=== PATIENT | male | born 1965 | race Two or more races ===

== ENCOUNTER 2024-08-07 09:19 | Observation (INO) | payer MEDICAID, SELFPAY ==
[2024-08-07 09:41] VITALS: BP 149/88; PULSE 100; RESP 20; TEMP 37.1; O2SAT 98; BMI 31.2
--- NOTE | 2024-08-07 09:58 | XR_ITS ---
Examination: PA lateral chest 2 views TECHNIQUE: Upright PA lateral chest 2 views Exam date and time: August 07, 2024 1006 hours Comparison July 05, 2012 INDICATIONS: Coughing today. FINDINGS: Normal heart size Bilateral granulomas again noted Poorly defined 5 cm mass which may be cavitary in the right upper lobe Osseous structures intact IMPRESSION: Recommend CT chest follow-up to exclude pulmonary neoplasm right apex
--- NOTE | 2024-08-07 10:36 | XR_ITS ---
Examination: CT chest with intravenous contrast CT abdomen with intravenous contrast CT pelvis with intravenous contrast 2-D coronal and sagittal reconstructions Time of exam: August 07, 2024 1249 hours INDICATIONS: Spider bite see the upper chest, congestion shortness of breath chest abdominal pain today CTDI: vol (mGy) : 12.6 DLP: (mGycm): 958 Technique: Multiple axial images of the chest, abdomen and pelvis with intravenous contrast, 3.0 mm slice thickness. Images obtained post intravenous injection Isovue 370 60 cc. 2-D sagittal and coronal reconstructions. Low dose protocols were performed. One or more of the following dose reduction techniques were used; automated exposure control, adjustment of the mA and/or KV according to patient size, use of iterative reconstruction technique. Findings: Cellulitis pattern in the anterior upper chest axial image 38, no definite fluid-filled abscess Also cellulitis pattern in the right axilla with multiple subcentimeter lymph nodes axial image 62 No thoracic aortic aneurysm dilatation No pulmonary artery emboli Numerous calcified granulomas Right apical masslike area axial image 86, Pancoast tumor included in the differential Numerous calcified granulomas Prominent osteopenia No visualized liver or splenic lesion No gallstones No pancreatic or adrenal mass No renal or ureteral calculi, no hydronephrosis Aorta normal size No pericecal inflammatory change Colonic diverticulosis, no diverticulitis No prostatomegaly Moderate osteopenia IMPRESSION: Cellulitis pattern in the upper anterior chest and in the right axilla, clinical correlation advised, recommend axillary sonography on the right follow-up Poorly defined right apical pleural-based masslike area, measuring 4.7 x 3.8 cm, differential would include Pancoast lung tumor, clinical correlation advised
[2024-08-07 10:37] LABS: Lactate (Lactic Acid) 1.1 mMol/L (0.4-2.0)
[2024-08-07 10:39] LABS: Basophils % (Auto) 0 % (0-2.5); Eosinophils % (Auto) 0 % (0-10); Hematocrit 41.2 % (41.0-53.0); Hemoglobin 13.9 g/dL (13.5-16.0); Immature Granulocytes % (Auto) 0 % (0-0); Immature Granulocytes Auto 0.03 Thou/mm3 (0.00-0.00); Lymphocytes # (Auto) 0.9 Thou/mm3 (1.0-4.8); Lymphocytes % (Auto) 12 % (10-50); Mean Corpuscular HGB Conc 33.7 g/dl (31.0-37.0); Mean Corpuscular Hemoglobin 29.2 pg (25.0-35.0); Mean Corpuscular Volume 87 fL (80-100); Monocytes # (Auto) 0.5 Thou/mm3 (0.0-0.8); Monocytes % (Auto) 7 % (0-12); Neutrophils # (Auto) 5.7 Thou/mm3 (1.8-7.7); Neutrophils % (Auto) 80 % (37-80); Nucleated Red Blood Cell % 0 /100 WBC (0); Platelet Count 242 Thou/mm3 (140-440); RDW Standard Deviation 39.4 fL (35.1-43.9); Red Blood Count 4.76 Miln/mm3 (4.50-5.90); White Blood Count 7.1 Thou/mm3 (3.8-10.6)
[2024-08-07] MEDS: PIPER/TAZO INJ 3.375 GM in SODIUM CHLORIDE 0.9% (P) 50 ML IV (10:42)
[2024-08-07 11:06] LABS: Alanine Aminotransferase 16 U/L (10-49); Albumin, Serum 4.1 gm/dL (3.4-4.8); Albumin/Globulin Ratio 1.1 (1.2-2.2); Alcohol, Blood Medical < 10.0 mg/dL (0-10.0); Alkaline Phosphatase 83 U/L (46-116); Anion Gap 3 (7-16); Aspartate Amino Transferase 31 U/L (0-34); BUN/Creatinine Ratio 11 Ratio (12-20); Bilirubin,Total 0.3 mg/dL (0.3-1.2); Blood Urea Nitrogen 14 mg/dL (9-23); C-Reactive Protein 8.6 mg/dL (0.0-0.9); Calcium 8.2 mg/dL (8.3-10.6); Calcium (Corrected) 8.2 mg/dL (8.5-10.1); Carbon Dioxide 26.8 mMol/L (20.0-31.0); Chloride 97 mMol/L (98-107); Creatinine (Component) 1.3 mg/dL (0.6-1.3); Estimated Creatinine Clearance 71.2 mL/min (>60); Globulin 3.7 gm/dL (2.3-3.5); Glucose 122 mg/dL (74-106); Osmolality,Calculated 256 (275-295); Potassium 4.3 mMol/L (3.4-5.1); Procalcitonin 0.22 ng/ml (0.0-0.49); Sodium 127 mMol/L (136-145); Total Protein 7.8 gm/dL (5.7-8.2); eGFR > 60 See Note
--- NOTE | 2024-08-07 11:23 | EKG_ITS ---
[facility] Test Date: 2024-08-07 Pat Name: KEIRA GORDILLO Department: Room: - Gender: Male [employer] Adminstrator: : [id number] Requested By: Yocasta Jolley Order Number: [id number] Reading MD: Yocasta Jolley Measurements Intervals [place] Rate: 78 P: 49 VT: 194 QRS: 32 QRSD: 109 T: 52 QT: 376 QTc: 429 Interpretive Statements SINUS RHYTHM MODERATE INTRAVENTRICULAR CONDUCTION DELAY [105+ ms QRS DURATION, 80+ ms Q/S IN V1/V2, NO Q AND 60+ ms R IN I/aVL/V5/V6] No previous ECG available for comparison /store/S0/[id number].pdf
--- NOTE | 2024-08-07 11:23 | PD.EDADULT ---
ED General RME/HPI General Chief complaint: Animal Bite Stated complaint: CONGESTION, SPIDER BITES TO RIGHT UPPER CHEST Time Seen by Provider: 08/07/24 09:25 Arrival date/time: 08/07/24 09:19 RME / HPI RME / HPI narrative: 58-year-old male patient with no significant past medical history, came in for evaluation regarding nonhealing wound to the right upper chest. Patient had wound since February, comes and goes, getting worst, multiple site. Patient was also complaining of worsening cough, congestion, for the last few days, severity moderate. Patient told me that for the longest time having seen any doctor. Patient denies any fever denies any abdominal pain denies any weight loss denies any other complaints no medications taken prior to arrival. Related Data Allergies Allergy/AdvReac Type Severity Reaction Status Date / Time ciprofloxacin Allergy Unknown RASH,DIZZY Unverified 07/05/12 06:39 Review of Systems Review of Systems Narrative Review of Systems: Review of system reviewed and within normal limits except mentioned in HPI ED Exam Narrative Physical exam: VITAL SIGNS: Reviewed. GENERAL APPEARANCE: Alert and interactive, follows commands, no acute distress, HEAD AND FACE: Non-traumatic. ENT: PERRL, pink conjunctivitis, eyelid no trauma, Mucous membrane moist. NECK: Supple, nontender, no nuchal rigidity. CHEST: No tenderness, no crepitus, no paradoxical movement, no retractions. LUNGS: Clear, well ventilated, symmetric, no rales, no wheezing, no ronchi, no stridor, good breath sounds bilaterally. HEART: Regular rate, regular rhythm, no murmur, no gallops. ABDOMEN: Soft, positive bowel sounds, nondistended, no guarding, nontender, no rebound, no masses, RECTAL: Deferred. GENITAL: Deferred. NEUROLOGICAL: Gross motor function intact sensory function intact, Appropriate for age. MUSCULOSKELETAL: low back nontender, full range of motion. EXTREMITIES: Nontender, full range of motion. SKIN: Color pink, dry, nonhealing wound to the left upper chest, measuring 3 x 3 cm, swelling, fluctuant, right upper chest, no lacerations, no abrasions, no contusions. LYMPHATICS: Deferred. Course Quality Measures none Orders Category Date Time Status COVID-19 Screening Questionnaire NOW Care 08/07/24 13:[address] Screening NOW Care 08/07/24 09:[address] Screening NOW Care 08/07/24 10:[address] Screening NOW Care 08/07/24 11:22 Active Decision to Admit X1 Care 08/07/24 13:42 Completed EKG (ED ONLY) *Do not use* NOW Care 08/07/24 11:24 Completed Insert IV NOW Care 08/07/24 09:[address] chest abdomen pelvis w Stat Exams 08/07/24 10:36 Completed EKG (ED Only) Stat Exams 08/07/24 11:23 Draft XR chest 2V Stat Exams 08/07/24 09:58 Completed Alcohol, Blood Medical Stat Lab 08/07/24 10:19 Completed BNP [B-Type Natriuretic Peptide] Stat Lab 08/07/24 10:19 Completed Blood Culture (Lab) Stat Lab 08/07/24 10:30 Received CBC Stat Lab 08/07/24 10:19 Completed CRP [C-Reactive Protein] Stat Lab 08/07/24 10:19 Completed Cocci Serology IgM with reflex to IgG [Cocci Serology, Lab 08/07/24 11:15 Completed Unk History] Stat Cocid Sro, CF/ID (UCD) NO CHG* Routine Lab 08/07/24 13:53 Received Comprehensive Metabolic Panel Stat Lab 08/07/24 10:19 Completed Drug Screen,Urine Stat Lab 08/07/24 10:03 Ordered ESR [Sed Rate (ESR)] Stat Lab 08/07/24 10:19 Completed Lactate (Lactic Acid) Stat Lab 08/07/24 10:19 Completed PSA [Prostate Specific Antigen] Stat Lab 08/07/24 10:19 Completed Procalcitonin Stat Lab 08/07/24 10:19 Completed Piper/Tazo Inj [Zosyn Inj] 3.375 gm Med 08/07/24 09:59 Discontinued Sodium Chloride 0.9% (P) [Ns 0.9% (P)] 50 ml IV X1 Sodium Chloride 0.9% 1000 ml [Ns] 1,000 ml Med 08/07/24 11:18 Discontinued IV 999 mls/hr Vancomycin Inj 1,000 mg Med 08/07/24 09:59 Discontinued Sodium Chloride 0.9% 250 ml [Ns] 250 ml IV X1 Vital Signs Vital signs: Vital Signs Temperature 98.7 F 08/07/24 09:41 Pulse Rate 100 08/07/24 09:41 Respiratory Rate 20 08/07/24 09:41 Blood Pressure 149/88 H 08/07/24 09:41 Pulse Oximetry (%) 98 08/07/24 09:41 Oxygen Delivery Method Room Air 08/07/24 09:41 [facility] Patient data External records reviewed:: None Clinical information provided by:: patient Social determinants that could affect healthcare access:: none Patient has the following chronic illnesses:: None How is presenting disease/condition affected by chronic disease/condition?: no chronic disease Evaluation data The following diagnostics were reviewed and interpreted by me:: lab results and radiology exam(s) Lab and/or radiology exams considered but not ordered:: None Interpretation Summary: EKG as interpreted by me showed sinus rhythm, ventricular rate of 78 bpm, MN interval 194 MS, no ST segment elevation or depression noted. CBC came back unremarkable. ESR was noted to be elevated, sodium 127 creatinine is normal C-reactive 8.6 was also tested positive for cocci. CT scan of the chest showed Cellulitis pattern in the upper anterior chest and in the right axilla, clinical correlation advised, recommend axillary sonography on the right follow-up Poorly defined right apical pleural-based masslike area, measuring 4.7 x 3.8 cm, differential would include Pancoast lung tumor, clinical correlation advised Medications Medications considered but not ordered:: None Medication administrations:: Medication Administration History Discontinued Medications Vancomycin HCl 1,000 mg/ (Sodium Chloride) 250 mls @ 150 mls/hr IV X1 ONE Stop: 08/07/24 11:38 Piperacillin Sod/Tazobactam (Sod 3.375 gm/ Sodium Chloride) 50 mls @ 100 mls/hr IV X1 ONE Stop: 08/07/24 10:28 Last Admin: 08/07/24 10:42 Dose: 100 mls/hr Documented By: LILY Sodium Chloride (Ns) 1,000 mls @ 999 mls/hr IV .Q1H1M ONE Stop: 08/07/24 12:18 Last Admin: 08/07/24 14:18 Dose: 999 mls/hr Documented By: CATERINA IV fluids, Zosyn and Vanco Consultations Consultation(s) initiated? (list below): No Diagnosis Differential Diagnosis ED Complaint MDM: Pancoast tumor, coccidiomycosis, cellulitis right chest Most likely diagnosis given after review of the tests above:: Pancoast tumor, cellulitis right chest wall, coccidiomycosis Admission Indicated Admission indicated?: indicated Explain why admission is indicated or not indicated:: Patient is to be admitted for further management Admission Request Was there a request for admission?: Yes Admission Attestation Admission request attestation: Discussed case with [Dr. Dc] from Hospitalist service regarding admission. Discussed patients ED course, exam findings, labs, and radiology results. The Hospitalist [agrees,] to accept the patient for admission. Disposition Plan Disposition Plan: Admit Medical Decision Making MDM Narrative MDM Narrative: 58-year-old male patient with no significant past medical history, came in for evaluation regarding nonhealing wound to the right upper chest. Patient had wound since February, comes and goes, getting worst, multiple site. Patient was also complaining of worsening cough, congestion, for the last few days, severity moderate. Patient told me that for the longest time having seen any doctor. Patient denies any fever denies any abdominal pain denies any weight loss denies any other complaints no medications taken prior to arrival. Laboratory workup significant for positive cocci, elevated ESR and CRP. No leukocytosis noted. CT scan of the chest abdomen pelvis showed possible Pancoast tumor at home. Results discussed with family and patient. Patient will be admitted for further management. Patient was also given IV Zosyn and Vanco Differential Diagnosis Differential Diagnosis: Pancoast tumor, coccidiomycosis, cellulitis right chest Lab Data 08/07/24 10:19 08/07/24 10:19 Labs: Lab Results 08/07/24 08/07/24 Range/Units 10:19 11:15 WBC 7.1 (3.8-10.6) Thou/mm3 RBC 4.76 (4.50-5.90) Miln/mm3 Hgb 13.9 (13.5-16.0) g/dL Hct 41.2 (41.0-53.0) % MCV 87 (80-100) fL MCH 29.2 (25.0-35.0) pg MCHC 33.7 (31.0-37.0) g/dl RDW Std Deviation 39.4 (35.1-43.9) fL Plt Count 242 (140-440) Thou/mm3 Neut % (Auto) 80 (37-80) % Lymph % (Auto) 12 (10-50) % Foard % (Auto) 7 (0-12) % Eos % (Auto) 0 (0-10) % Baso % (Auto) 0 (0-2.5) % Neut # (Auto) 5.7 (1.8-7.7) Thou/mm3 Lymph # (Auto) 0.9 L (1.0-4.8) Thou/mm3 Foard # (Auto) 0.5 (0.0-0.8) Thou/mm3 Eos # (Auto) 0.0 (0.0-0.5) Thou/mm3 Baso # (Auto) 0.0 (0.0-0.2) Thou/mm3 Immature Gran # (Auto) 0.03 H (0.00-0.00) Thou/mm3 Absolute Nucleated RBC 0.00 (0.00-0.00) Thou/mm3 Immature Gran % 0 (0-0) % Nucleated RBC % 0 (0) /100 WBC ESR 65 H (0-20) mm/hr Sodium 127 L (136-145) mMol/L Potassium 4.3 (3.4-5.1) mMol/L Chloride 97 L (98-107) mMol/L Carbon Dioxide 26.8 (20.0-31.0) mMol/L Anion Gap 3 L (7-16) BUN 14 (9-23) mg/dL Creatinine 1.3 (0.6-1.3) mg/dL Estim Creat Clear Calc 71.2 (>60) mL/min eGFR > 60 (60 - ) See Note BUN/Creatinine Ratio 11 L (12-20) Ratio Glucose 122 H (74-106) mg/dL Calculated Osmolality 256 L (275-295) Lactic Acid 1.1 (0.4-2.0) mMol/L Calcium 8.2 L (8.3-10.6) mg/dL Corrected Calcium 8.2 L (8.5-10.1) mg/dL Total Bilirubin 0.3 (0.3-1.2) mg/dL AST 31 (0-34) U/L ALT 16 (10-49) U/L Alkaline Phosphatase 83 (46-116) U/L C-Reactive Prot, Quant 8.6 H (0.0-0.9) mg/dL B-Natriuretic Peptide < 20 (0-100) pg/mL Total Protein 7.8 (5.7-8.2) gm/dL Albumin 4.1 (3.4-4.8) gm/dL Globulin 3.7 H (2.3-3.5) gm/dL Albumin/Globulin Ratio 1.1 L (1.2-2.2) Prostate Specific Ag 0.53 (0-4.00) ng/mL Procalcitonin 0.22 (0.0-0.49) ng/ml Ethyl Alcohol < 10.0 (0-10.0) mg/dL Coccidioides IgM Ab Positive A (Negative) Discharge Plan Prescriptions/Referrals Referrals: No Primary/Family,Physician [Primary Care Provider] - In 1 week Problem List Clinical Impression: Abscess or cellulitis of chest wall, Pancoast tumor of right lung, Coccidioidomycosis Patient/Caregiver Discharge Instructions Print Language: Latvian
[2024-08-07 11:24] LABS: Sed Rate (ESR) 65 mm/hr (0-20)
[2024-08-07 12:09] LABS: B-Type Natriuretic Peptide < 20 pg/mL (0-100)
[2024-08-07 12:13] LABS: Prostate Specific Antigen 0.53 ng/mL (0-4.00)
[2024-08-07 13:53] LABS: Cocci Serology, IgM Positive (Negative)
[2024-08-07 13:53] LABS: Cocid Sro, CF/ID (UCD) NO CHG* See Sep Rpt
[2024-08-07 14:10] VITALS: BP 102/60; PULSE 78; RESP 20; O2SAT 95
[2024-08-07] MEDS: SODIUM CHLORIDE 0.9% 1000 ML 1,000 ML 999 ML IV (14:18)
[2024-08-07] MEDS: Vancomycin Inj 1,000 MG in SODIUM CHLORIDE 0.9% 250 ML 250 ML 150 MG IV (14:32)
[2024-08-07 16:15] LABS: Troponin I < 0.020 ng/mL (0.0-0.045)
[2024-08-07] MEDS: FLUCONAZOLE 100 MG TABLET 800 MG PO (16:23)
[2024-08-07] MEDS: ALBUTEROL/IPRATROPIUM (Duoneb) RT SOL 3 ML NEBU INH (16:38)
[2024-08-07 16:39] VITALS: PULSE 78; RESP 26; O2SAT 97
[2024-08-07 16:42] VITALS: PULSE 78; RESP 21; RESP 95
--- NOTE | 2024-08-07 16:43 | PC.CC ---
Patient is a 58 year-old male BIB-son, Colt Merino . Leslye WEBB made [id number] contact with patient. ASW introduced self, role, and reason for visit. Patient appeared alert and oriented to self, location, and situation. At bedside was patient's son, Colt, patient provided consent to remain in the room during initial assessment. Patient was pleasant and engaged in initial assessment. Patient confirmed information on demographics and reports to living with his son. Prior to being admitted, patient was able to ambulate with a cane and complete his own ADLs without assistance. Patient does not have a primary care provider, but uses [facility] [address] for prescription medications. Patient reports he has had the wound since February 2024 and has not received treatment for it. Upon discharge patient plans to return back home with his son. assessment services manager to follow-up with any discharge needs.
[2024-08-07 16:48] LABS: HIV (1&2) Antibody Rapid Non-Reactive
[2024-08-07 17:05] VITALS: BP 102/60; PULSE 80; RESP 18; O2SAT 97
[2024-08-07 17:15] LABS: Hepatitis A Antibody IgM Non Reactive (Non React); Hepatitis B Core Antibody IgM Non Reactive (Non React); Hepatitis B Surface Antigen Non Reactive (Non React); Hepatitis C Antibody Non Reactive (Non React)
--- NOTE | 2024-08-07 17:21 | PD.RESHP ---
Documentation for date of: 08/07/24 [facility] History of Present Illness History of present illness: Woody nicholson is a 58-year-old male past medical history of drug abuse who presents with 4 days of cough, shortness of breath, night sweats. Reports chest pressure when he coughs and mucus production that is yellowish/green. He states that he does not go to the doctors ever and is only in the hospital for surgery. Patient also complains of a skin infection of his right chest wall that has worsened since February. Patient states that he is also getting swelling in his right armpit, erythema and mild tenderness to palpation. Patient states that at one point grew out what looked like a horn that he fell off. Patient denies hemoptysis, sick contacts, travel outside the [place]. In the ED patient presented with respiratory rate high 20s and tachycardic at 100, afebrile hypertensive blood pressure 149/88. White count 7 elevated ESR of 65, CRP 8.6 hyponatremic at 127, negative troponin, cocci IgM antibody positive, negative hep and HIV panel. CT chest showed cellulitis pattern in the upper anterior chest in the right axilla, poorly defined right apical pleural-based masslike area measuring 4.7 x 3.8 cm differential would include Pancoast lung tumor. EKG shows sinus rhythm with moderate intraventricular conduction delay. Sputum and blood cultures were collected PMH: None PSH: Hernia repair, left ankle Family history: Unknown Social: Disabled from work injury involving the hip since 2009, reports drinking 3 beers daily, [id number] smoke history, reports history of meth use Allergies: NKDA Meds: None Review of systems: Constitutional: Reports fevers/chills, denies weight loss CV: Denies palpitations, reports chest pressure Pulm reports shortness of breath, cough GI denies nausea, vomiting, abdominal pain, diarrhea : Denies dysuria Neuro: Denies numbness or tingling of the extremities ID: Denies hemoptysis, myalgia Exam Vital Signs Temp Pulse Resp BP Pulse Ox O2 Del Method 98.7 F 80 18 102/60 97 Room Air 08/07/24 09:41 08/07/24 17:05 08/07/24 17:05 08/07/24 17:05 08/07/24 17:05 08/07/24 17:05 Narrative Exam General: Disheveled. No acute distress, pleasant Skin: Erythema of right upper chest and axilla with small 1 cm by centimeter nodule and open wound with no purulent drainage HEENT: Normocephalic, atraumatic, conjunctiva clear, sclera non-icteric, EOM intact, PERRL, Heart: Regular rate and rhythm, no murmur or gallop Lungs: Coarse breath sounds, no wheezing Abdomen: Soft, nontender to palpation, nondistended Extremities: No amputations or deformities, cyanosis, edema or varicosities, peripheral pulses intact Neurologic: Moves all extremities spontaneously, no focal neurodeficits, A&O x 4 Psychiatric: Cooperative, normal mood and affect. Results: Labs 08/08/24 05:09 08/08/24 05:09 Labs: Short CBC 08/07/24 Range/Units 10:19 WBC 7.1 (3.8-10.6) Thou/mm3 Hgb 13.9 (13.5-16.0) g/dL Hct 41.2 (41.0-53.0) % Plt Count 242 (140-440) Thou/mm3 BMP 08/07/24 10:19 Sodium 127 L Potassium 4.3 Chloride 97 L Carbon Dioxide 26.8 BUN 14 Creatinine 1.3 Glucose 122 H Calcium 8.2 L Cardiac Enzymes 08/07/24 Range/Units 15:42 Troponin I < 0.020 (0.0-0.045) ng/mL Liver Function 08/07/24 Range/Units 10:19 Total Bilirubin 0.3 (0.3-1.2) mg/dL AST 31 (0-34) U/L ALT 16 (10-49) U/L Alkaline Phosphatase 83 (46-116) U/L Albumin 4.1 (3.4-4.8) gm/dL Quality Measures Quality Measures VTE prophylaxis Medications Home Medications and Allergies Allergies Allergy/AdvReac Type Severity Reaction Status Date / Time ciprofloxacin Allergy Unknown RASH,DIZZY Unverified 07/05/12 06:39 Visit Medications Acetaminophen (Acetaminophen 325 Mg Tablet) 650 mg PO Q6H PRN PRN Reason: Fever >100.3 Stop: 09/06/24 14:49 Acetaminophen (Acetaminophen 325 Mg Tablet) 650 mg PO Q6H PRN PRN Reason: PAIN SCALE 1-3 (mild Stop: 09/06/24 14:49 Albuterol/Ipratropium (Albuterol/Ipratropium (Duoneb) Rt Macrina 3 Ml Nebu) 3 ml INH Q4HRRT PRN PRN Reason: WHEEZING Stop: 09/06/24 18:59 Last Admin: 08/07/24 16:38 Dose: 3 ml Fluconazole (Fluconazole 100 Mg Tablet) 400 mg PO DAILY ELEN Stop: 08/15/24 07:59 Hydralazine HCl (Hydralazine Inj 20 Mg/Ml Vial) 10 mg IV Q2H PRN PRN Reason: SBP >180 Stop: 09/06/24 15:34 Melatonin (Melatonin 3 Mg Tablet) 3 mg PO HS PRN PRN Reason: insomnia Stop: 09/06/24 20:59 Ondansetron HCl (Ondansetron Inj 2 Mg/Ml Inj 2 Ml) 4 mg IV Q6H PRN; Protocol PRN Reason: NAUSEA OR VOMITING Stop: 09/06/24 14:49 Pantoprazole Sodium (Pantoprazole 40 Mg Tablet) 40 mg PO QDAY [facility] Stop: 09/07/24 08:59 Sennosides (Senna Tablet) 1 tab PO QDAY ELEN; Protocol Stop: 09/07/24 08:59 Discontinued Medications Fluconazole (Fluconazole 100 Mg Tablet) 400 mg PO DAILY ELEN Stop: 08/14/24 15:44 Fluconazole (Fluconazole 100 Mg Tablet) 800 mg PO X1 ONE Stop: 08/07/24 16:17 Last Admin: 08/07/24 16:23 Dose: 100 mg Vancomycin HCl 1,000 mg/ (Sodium Chloride) 250 mls @ 150 mls/hr IV X1 ONE Stop: 08/07/24 11:38 Last Infusion: 08/07/24 16:35 Dose: Infused Piperacillin Sod/Tazobactam (Sod 3.375 gm/ Sodium Chloride) 50 mls @ 100 mls/hr IV X1 ONE Stop: 08/07/24 10:28 Last Infusion: 08/07/24 16:34 Dose: Infused Sodium Chloride (Ns) 1,000 mls @ 999 mls/hr IV .Q1H1M ONE Stop: 08/07/24 12:18 Last Infusion: 08/07/24 15:20 Dose: Infused Assessment & Plan Plan Woody is a 58-year-old male with history of drug abuse who presents with shortness of breath, cough, night sweats for the past 4 days in the setting of an apical mass on CT chest and a positive cocci IgM test. ID was consulted for recommendations. #Pulmonary cocci with skin manifestation #Apical mass #Shortness of breath Considered tuberculosis however no hemoptysis, no travel. Positive IgM cocci. Will discuss case with infectious disease whether to pursue further TB workup Discussed case with Dr. Vedruzco(IR), possible biopsy, however high liklihood it is active Cocci lesion CT chest showed poorly defined right apical pleural-based masslike area measuring 4.7 x 3.8 cm differential would include Pancoast lung tumor Plan: ID consulted, appreciate recommendations Fluconazole 800 mg x 1-> 400 mg daily Hold on antibiotics for now. Skin lesion is likely from Cocci not cellulitis->received dose of Vanco and Zosyn in ED Quantiferon gold #History of alcohol use Patient reports drinking at least 3 beers daily -[facility] protocol -Thiamine+folic acid supplementation #Hypertension Hypertensive 149/88 in ED. No history of hypertension. -Hydralazine 10mg IV q2Hr PRN -Contine to monitor #Other specified counseling Hep panel and HIV negative Follow-up on hemoglobin A1c, TSH, lipid panel Health Maintenance: Disp: Med/tele FEN: Cardiac diet GI: Protonix 40 mg daily DVT: Lovenox 40 mg daily Lines: PIV Code: Full code The patient's plan was discussed with attending Dr. Louis and senior resident Dr. Tacho Lisa, DO PGY1 Internal Medicine Attending Provider Attestation/Addendum 58-year-old male with history of drug abuse who presented with complaint of 4-day history of cough. Denies any hemoptysis or weight loss. In the ER, patient underwent CT chest with findings of apical mass and subsequently cocci studies was positive. As a result, admitted for pulmonary coccidiomycosis with skin manifestation and started on IV fluconazole pending ID input. I reviewed above note and agree with findings and plans. I have also personally examined the patient with medicine team and went over assessment and plan with medical team including internet researcher and resident physician.
[2024-08-07 20:00] VITALS: PULSE 66
[2024-08-07 20:20] VITALS: BMI 29.4
[2024-08-07] MEDS: THIAMINE 100 MG TABLET PO (20:21)
[2024-08-07] MEDS: FOLIC ACID 1 MG TABLET PO (20:21)
[2024-08-07] MEDS: ACETAMINOPHEN 325 MG TABLET 650 MG PO (20:30)
[2024-08-08] VITALS (9 sets, daily range): BP systolic 94–109; BP diastolic 55–70; PULSE 63–76; RESP 16–96; TEMP 36.4–36.8; O2SAT 93–99
[2024-08-08 01:19] LABS: Amphetamine/Methamp Scrn,U Positive (Negative); Barbiturate Screen,Urine Negative (Negative); Benzodiazepines Screen,Urine Negative (Negative); Benzoylecgonine Screen, Ur Negative (Negative); Fentanyl Screen,Urine Negative (Negative); Opiate Screen,Urine Negative (Negative); THC Screen,Urine Negative (Negative)
[2024-08-08 05:43] LABS: Quantiferon-TB* See Sep Rpt
[2024-08-08 05:55] LABS: Basophils % (Auto) 0 % (0-2.5); Eosinophils % (Auto) 0 % (0-10); Hematocrit 37.2 % (41.0-53.0); Hemoglobin 12.4 g/dL (13.5-16.0); Immature Granulocytes % (Auto) 1 % (0-0); Immature Granulocytes Auto 0.03 Thou/mm3 (0.00-0.00); Lymphocytes % (Auto) 20 % (10-50); Mean Corpuscular HGB Conc 33.3 g/dl (31.0-37.0); Mean Corpuscular Volume 87 fL (80-100); Monocytes # (Auto) 0.3 Thou/mm3 (0.0-0.8); Monocytes % (Auto) 7 % (0-12); Neutrophils # (Auto) 3.5 Thou/mm3 (1.8-7.7); Neutrophils % (Auto) 72 % (37-80); Nucleated Red Blood Cell % 0 /100 WBC (0); Platelet Count 190 Thou/mm3 (140-440); RDW Standard Deviation 40.2 fL (35.1-43.9); Red Blood Count 4.27 Miln/mm3 (4.50-5.90); White Blood Count 4.8 Thou/mm3 (3.8-10.6)
[2024-08-08 06:03] LABS: INR 1.1 (0.9-1.3); Partial Thromboplastin Time 30.6 Seconds (22.0-36.0); Prothrombin Time 11.5 Seconds (9.0-12.2)
[2024-08-08 06:28] LABS: Alanine Aminotransferase 13 U/L (10-49); Albumin, Serum 3.4 gm/dL (3.4-4.8); Albumin/Globulin Ratio 1.1 (1.2-2.2); Alkaline Phosphatase 64 U/L (46-116); Anion Gap 6 (7-16); Aspartate Amino Transferase 21 U/L (0-34); BUN/Creatinine Ratio 11 Ratio (12-20); Bilirubin,Total 0.2 mg/dL (0.3-1.2); Blood Urea Nitrogen 12 mg/dL (9-23); Calcium (Corrected) 8.5 mg/dL (8.5-10.1); Carbon Dioxide 25.5 mMol/L (20.0-31.0); Cardiac Risk Estimate 3.8 RATIO (4.0-6.7); Chloride 103 mMol/L (98-107); Cholesterol 83 mg/dL (132-200); Creatinine (Component) 1.1 mg/dL (0.6-1.3); Estimated Creatinine Clearance 84.3 mL/min (>60); Globulin 3.1 gm/dL (2.3-3.5); Glucose 90 mg/dL (74-106); HDL Cholesterol 22 mg/dL (40-60); LDL Cholesterol,Calculated 47 mg/dL (0-130); Magnesium 2.5 mg/dL (1.6-2.6); Osmolality,Calculated 267 (275-295); Phosphorous 3.1 mg/dL (2.4-5.1); Potassium 3.9 mMol/L (3.4-5.1); Sodium 134 mMol/L (136-145); Thyroid Stimulating Hormone 5.23 uIU/mL (0.55-4.78); Total Protein 6.5 gm/dL (5.7-8.2); Triglycerides 69 mg/dL (30-150); eGFR > 60 See Note
[2024-08-08 07:34] LABS: Glucose Estimated Average 126 mg/dL (80-131)
[2024-08-08] MEDS: FLUCONAZOLE 100 MG TABLET 400 MG PO (08:26)
[2024-08-08] MEDS: FOLIC ACID 1 MG TABLET PO ×2 (08:27→20:08)
[2024-08-08] MEDS: PANTOPRAZOLE 40 MG TABLET PO (08:27)
[2024-08-08] MEDS: THIAMINE 100 MG TABLET PO ×2 (08:27→20:08)
[2024-08-08] MEDS: SENNA TABLET 1 TAB PO (08:27)
--- NOTE | 2024-08-08 08:58 | PD.IDPROG ---
Subjective Subjective Interval history: asked to see. lung tumor vs cocci. test pos locally from 08/07. likely no result from [facility] till next week Exam Vital Signs Temp Pulse Resp BP Pulse Ox O2 Del Method 98.3 F 75 18 109/67 95 Room Air 08/08/24 08:00 08/08/24 08:31 08/08/24 08:31 08/08/24 08:00 08/08/24 08:31 08/08/24 08:00 Narrative Exam firm non tender mass rt chest wall. no wt loss. sx for months overall with recent increase in sx noted for 5d Objective - Internal Medicine Labs 08/08/24 05:09 08/08/24 05:09 Labs: Laboratory Results - last 24 hr 08/07/24 08/07/24 08/07/24 10:19 11:15 15:42 WBC 7.1 RBC 4.76 Hgb 13.9 Hct 41.2 MCV 87 MCH 29.2 MCHC 33.7 RDW Std Deviation 39.4 Plt Count 242 Neut % (Auto) 80 Lymph % (Auto) 12 [place] % (Auto) 7 Eos % (Auto) 0 Baso % (Auto) 0 Neut # (Auto) 5.7 Lymph # (Auto) 0.9 L [place] # (Auto) 0.5 Eos # (Auto) 0.0 Baso # (Auto) 0.0 Immature Gran # (Auto) 0.03 H Absolute Nucleated RBC 0.00 Immature Gran % 0 Nucleated RBC % 0 ESR 65 H PT INR APTT Sodium 127 L Potassium 4.3 Chloride 97 L Carbon Dioxide 26.8 Anion Gap 3 L BUN 14 Creatinine 1.3 Estim Creat Clear Calc 71.2 eGFR > 60 BUN/Creatinine Ratio 11 L Glucose [address] Glu mg/dL Hemoglobin A1c Calculated Osmolality 256 L Lactic Acid 1.1 Calcium 8.2 L Corrected Calcium 8.2 L Phosphorus Magnesium Total Bilirubin 0.3 AST 31 ALT 16 Alkaline Phosphatase 83 Troponin I < 0.020 C-Reactive Prot, Quant 8.6 H B-Natriuretic Peptide < 20 Total Protein 7.8 Albumin 4.1 Globulin 3.7 H Albumin/Globulin Ratio 1.1 L Triglycerides Cholesterol LDL Cholesterol, Calc HDL Cholesterol Cholesterol/HDL Ratio Prostate Specific Ag 0.53 Procalcitonin 0.22 TSH Urine Opiates Screen Urine Fentanyl Screen Ur Barbiturates Screen U Amphetamin/Meth Scrn U Benzodiazepines Scrn U Cocaine Metab Screen U Marijuana (THC) Screen Ethyl Alcohol < 10.0 Coccidioides IgM Ab Positive A Hepatitis A IgM Ab Non Reactive Hep Bs Antigen Non Reactive Hep B Core IgM Ab Non Reactive Hepatitis C Antibody Non Reactive HIV 1&2 Antibody Rapid Non-Reactive 08/08/24 08/08/24 00:17 05:09 WBC 4.8 RBC 4.27 L Hgb 12.4 L Hct 37.2 L MCV 87 MCH 29.0 MCHC 33.3 RDW Std Deviation 40.2 Plt Count 190 D Neut % (Auto) 72 Lymph % (Auto) 20 [place] % (Auto) 7 Eos % (Auto) 0 Baso % (Auto) 0 Neut # (Auto) 3.5 Lymph # (Auto) 1.0 [place] # (Auto) 0.3 Eos # (Auto) 0.0 Baso # (Auto) 0.0 Immature Gran # (Auto) 0.03 H Absolute Nucleated RBC 0.00 Immature Gran % 1 H Nucleated RBC % 0 ESR PT 11.5 INR 1.1 APTT 30.6 Sodium 134 L Potassium 3.9 Chloride 103 Carbon Dioxide 25.5 Anion Gap 6 L BUN 12 Creatinine 1.1 Estim Creat Clear Calc 84.3 eGFR > 60 BUN/Creatinine Ratio 11 L Glucose [address] Glu mg/dL 126 Hemoglobin A1c 6.0 Calculated Osmolality 267 L Lactic Acid Calcium 8.0 L Corrected Calcium 8.5 Phosphorus 3.1 Magnesium 2.5 Total Bilirubin 0.2 L AST 21 ALT 13 Alkaline Phosphatase 64 D Troponin I C-Reactive Prot, Quant B-Natriuretic Peptide Total Protein 6.5 Albumin 3.4 D Globulin 3.1 Albumin/Globulin Ratio 1.1 L Triglycerides 69 Cholesterol 83 L LDL Cholesterol, Calc 47 HDL Cholesterol 22 L Cholesterol/HDL Ratio 3.8 L Prostate Specific Ag Procalcitonin TSH 5.23 H Urine Opiates Screen Negative Urine Fentanyl Screen Negative Ur Barbiturates Screen Negative U Amphetamin/Meth Scrn Positive A U Benzodiazepines Scrn Negative U Cocaine Metab Screen Negative U Marijuana (THC) Screen Negative Ethyl Alcohol Coccidioides IgM Ab Hepatitis A IgM Ab Hep Bs Antigen Hep B Core IgM Ab Hepatitis C Antibody HIV 1&2 Antibody Rapid Assessment & Plan A&P Narrative lung mass, cocci vs pneumonia vs ca, smoking hx noted. substance use hx. meth anemia with normal mcv pt likely needs a biopsy of the lung mass. good to evaluate for some other things first, but cocci test requires waiting for confirmation. likely no result till sun of coming week local test is good, but not great. some false pos noted. will check in sunday, but am not expecting data from d till /sun or so Time Spent With Patient Time: Total time spent is greater than 50% in coordination of care (as documented) at patient's floor/unit and/or counseling patient:
--- NOTE | 2024-08-08 10:36 | PD.HHPROG ---
Documentation for date of: 08/08/24 Subjective - Hospitalist Subjective Interval history: Patient states that he is doing well. Shortness of breath better per patient. Review of Systems Review of Systems Narrative Review of Systems: General: Denies fevers or chills. Heart: Denies chest pain or palpitation Abdomen: Denies diarrhea, constipation, bright red blood per rectum or melena. Neurology: Denies any changes in vision, weakness or difficulty speaking. The rest of review of system is otherwise negative except what is mentioned above Exam Vital Signs Temp Pulse Resp BP Pulse Ox O2 Del Method 98.3 F 75 18 109/67 95 Room Air 08/08/24 08:00 08/08/24 08:31 08/08/24 08:31 08/08/24 08:00 08/08/24 08:31 08/08/24 08:00 Narrative Physical Exam: General: Alert and oriented to name, date of and place HEENT: Normocephalic, atraumatic Cardiac: Regular rate and rhythm, no murmurs Lungs: Clear to auscultation with no wheezing or crackles Abdomen: Nondistended, nontender positive bowel sounds. No guarding or rebound tenderness. Neurology: Cranial nerves II to XII intact and patient able to move all 4 extremities. Skin: 2 small nodule with open drainage in the axillary and right chest area with purulent drainage both measuring about 1cm by 1cm Objective - Hospitalist Labs Diagram: 08/08/24 05:09 08/08/24 05:09 Labs: Laboratory Results - last 24 hr 08/07/24 08/07/24 08/07/24 10:19 11:15 15:42 WBC 7.1 RBC 4.76 Hgb 13.9 Hct 41.2 MCV 87 MCH 29.2 MCHC 33.7 RDW Std Deviation 39.4 Plt Count 242 Neut % (Auto) 80 Lymph % (Auto) 12 [place] % (Auto) 7 Eos % (Auto) 0 Baso % (Auto) 0 Neut # (Auto) 5.7 Lymph # (Auto) 0.9 L [place] # (Auto) 0.5 Eos # (Auto) 0.0 Baso # (Auto) 0.0 Immature Gran # (Auto) 0.03 H Absolute Nucleated RBC 0.00 Immature Gran % 0 Nucleated RBC % 0 ESR 65 H PT INR APTT Sodium 127 L Potassium 4.3 Chloride 97 L Carbon Dioxide 26.8 Anion Gap 3 L BUN 14 Creatinine 1.3 Estim Creat Clear Calc 71.2 eGFR > 60 BUN/Creatinine Ratio 11 L Glucose [address] Glu mg/dL Hemoglobin A1c Calculated Osmolality 256 L Lactic Acid 1.1 Calcium 8.2 L Corrected Calcium 8.2 L Phosphorus Magnesium Total Bilirubin 0.3 AST 31 ALT 16 Alkaline Phosphatase 83 Troponin I < 0.020 C-Reactive Prot, Quant 8.6 H B-Natriuretic Peptide < 20 Total Protein 7.8 Albumin 4.1 Globulin 3.7 H Albumin/Globulin Ratio 1.1 L Triglycerides Cholesterol LDL Cholesterol, Calc HDL Cholesterol Cholesterol/HDL Ratio Prostate Specific Ag 0.53 Procalcitonin 0.22 TSH Urine Opiates Screen Urine Fentanyl Screen Ur Barbiturates Screen U Amphetamin/Meth Scrn U Benzodiazepines Scrn U Cocaine Metab Screen U Marijuana (THC) Screen Ethyl Alcohol < 10.0 Coccidioides IgM Ab Positive A Hepatitis A IgM Ab Non Reactive Hep Bs Antigen Non Reactive Hep B Core IgM Ab Non Reactive Hepatitis C Antibody Non Reactive HIV 1&2 Antibody Rapid Non-Reactive 08/08/24 08/08/24 00:17 05:09 WBC 4.8 RBC 4.27 L Hgb 12.4 L Hct 37.2 L MCV 87 MCH 29.0 MCHC 33.3 RDW Std Deviation 40.2 Plt Count 190 D Neut % (Auto) 72 Lymph % (Auto) 20 [place] % (Auto) 7 Eos % (Auto) 0 Baso % (Auto) 0 Neut # (Auto) 3.5 Lymph # (Auto) 1.0 [place] # (Auto) 0.3 Eos # (Auto) 0.0 Baso # (Auto) 0.0 Immature Gran # (Auto) 0.03 H Absolute Nucleated RBC 0.00 Immature Gran % 1 H Nucleated RBC % 0 ESR PT 11.5 INR 1.1 APTT 30.6 Sodium 134 L Potassium 3.9 Chloride 103 Carbon Dioxide 25.5 Anion Gap 6 L BUN 12 Creatinine 1.1 Estim Creat Clear Calc 84.3 eGFR > 60 BUN/Creatinine Ratio 11 L Glucose [address] Glu mg/dL 126 Hemoglobin A1c 6.0 Calculated Osmolality 267 L Lactic Acid Calcium 8.0 L Corrected Calcium 8.5 Phosphorus 3.1 Magnesium 2.5 Total Bilirubin 0.2 L AST 21 ALT 13 Alkaline Phosphatase 64 D Troponin I C-Reactive Prot, Quant B-Natriuretic Peptide Total Protein 6.5 Albumin 3.4 D Globulin 3.1 Albumin/Globulin Ratio 1.1 L Triglycerides 69 Cholesterol 83 L LDL Cholesterol, Calc 47 HDL Cholesterol 22 L Cholesterol/HDL Ratio 3.8 L Prostate Specific Ag Procalcitonin TSH 5.23 H Urine Opiates Screen Negative Urine Fentanyl Screen Negative Ur Barbiturates Screen Negative U Amphetamin/Meth Scrn Positive A U Benzodiazepines Scrn Negative U Cocaine Metab Screen Negative U Marijuana (THC) Screen Negative Ethyl Alcohol Coccidioides IgM Ab Hepatitis A IgM Ab Hep Bs Antigen Hep B Core IgM Ab Hepatitis C Antibody HIV 1&2 Antibody Rapid Assessment & Plan Patient Synopsis 58-year-old male with history of drug abuse who presented with complaint of 4-day history of cough. Denies any hemoptysis or weight loss. In the ER, patient underwent CT chest with findings of apical mass and subsequently cocci studies was positive. As a result, admitted for pulmonary coccidiomycosis with skin manifestation and started on IV fluconazole pending ID input. 1. Pulmonary coccidiomycosis 2. Right apical mass ?Patient tested positive for cocci however noted to have a mass and underwent at this point if mass . Coccidiomycosis versus true malignancy ? Will continue IV fluconazole pending confirmatory test from [facility] ? Hepatitis and HIV negative ? Appreciate ID input ? Continue IV fluconazole 3. Skin lesion concerning for disseminated cocci ? Will continue IV fluconazole ? Per ID recommended starting patient on cephalexin and doxycycline for possible superimposed bacterial infection 4. Alcohol use disorder 5. Alcohol withdrawal ? Drinks daily ? On CIWA protocol Healthcare Maintenance: DVT prophylaxis: Lovenox 40 mg daily GI prophylaxis: Protonix 40 mg daily Diet: Cardiac diet Lines: PIV CODE STATUS: Full code Reason for hospitalization: Pulmonary coccidiomycosis pending further workup and alcohol withdrawal on CIWA protocol Time Spent with Patient Time: Total time spent is greater than 50% in coordination of care (as documented) at patient's floor/unit and/or counseling patient: Time with patient: Greater than 35 minutes Reason for Continued Stay Reason for continued stay: further monitoring Quality Measures Quality Measures VTE prophylaxis
--- NOTE | 2024-08-08 11:43 | ESCONSULT_ITS ---
RE: KEIRA GORDILLO : 1965 DATE OF CONSULTATION: 08/08/2024 REFERRING PHYSICIAN: Dr. Louis. REASON FOR CONSULTATION: Right lung mass with chest wall lesion. HISTORY OF PRESENT ILLNESS: The patient is an unfortunate man with a chest wall lesion. He has had chest wall cellulitis for several months and respiratory symptoms for about 5 days. He has not lost any weight. [place] [address] which mostly sounds like he is semi-homeless. His substance use history cannot verify when he last used. He mostly uses methamphetamine. PAST SURGICAL HISTORY: Include left leg surgery, left hand surgery, and a hernia repair several years ago. ALLERGIES: CIPRO CAUSING TONGUE SWELLING AND OTHER SIMILAR SYMPTOMS. IMMUNIZATIONS: Last tetanus is unknown. He does not take flu shot every year, has not had COVID vaccine and did not have pneumococcal vaccine. FAMILY HISTORY: Unremarkable. SOCIAL HISTORY: He lives alone, occasionally with his son. Smokes half pack a day. HIV and hepatitis panel are negative. PHYSICAL EXAMINATION: Of note, he has occasional cough and is on room air. RECOMMENDATIONS: So, I am going to give him an oral antibiotic. keep him on the fluconazole and probably use two antibiotics. I will check on him again Sunday, but likely we are not going to have a result until Sunday of next week. DT: 09:15:01 TT: 10:18:00 Ref: [id number] - TID: [id number] MTDD
--- NOTE | 2024-08-08 13:48 | PC.SS ---
SS met with patient regarding his d/c plan. Pt is alert/oriented. Pt was admitted for SOB. Pt confirmed his contact information is correct on facesheet. Pt will be staying with his son, Colt and his address is: [address] [place] [address]. Pt ambulates using a cane. Pt is ok with all ADLs. Patient?s pharmacy of choice is [facility] [address]. Pt named his son, Colt Merino, phone# [phone] medical decision maker if he is unable. Patient?s choice is to return home upon d/c. Patient's tox screen was positive for meth. Pt states he was last used [facility] ago. Pt denies using meth on daily bases and states it's not a big program. SS offered community resources and pt declined. Pt does not have a PCP. Pt is agreeable to follow up with physicians at [facility]. D/C plan: Return home Next of Kin: Colt Merino, son, phone# [phone] PCP: Establish at [facility] Address: Correct on facesheet
[2024-08-08] MEDS: DOXYCYCLINE 100 MG TABLET PO (20:08)
[2024-08-08] MEDS: cefuroxime axetiL 250 MG TABLET 500 MG PO (20:43)
[2024-08-09] VITALS: BP 108/68; PULSE 66; PULSE 76; RESP 17; TEMP 36.7; O2SAT 96
[2024-08-09 04:00] VITALS: BP 105/69; PULSE 60; PULSE 65; RESP 17; TEMP 36.6; O2SAT 96
[2024-08-09 06:20] LABS: Basophils % (Auto) 0 % (0-2.5); Eosinophils % (Auto) 0 % (0-10); Hematocrit 35.8 % (41.0-53.0); Hemoglobin 11.9 g/dL (13.5-16.0); Immature Granulocytes % (Auto) 1 % (0-0); Immature Granulocytes Auto 0.04 Thou/mm3 (0.00-0.00); Lymphocytes # (Auto) 1.3 Thou/mm3 (1.0-4.8); Lymphocytes % (Auto) 26 % (10-50); Mean Corpuscular HGB Conc 33.2 g/dl (31.0-37.0); Mean Corpuscular Hemoglobin 29.5 pg (25.0-35.0); Mean Corpuscular Volume 89 fL (80-100); Monocytes # (Auto) 0.3 Thou/mm3 (0.0-0.8); Monocytes % (Auto) 6 % (0-12); Neutrophils # (Auto) 3.5 Thou/mm3 (1.8-7.7); Neutrophils % (Auto) 67 % (37-80); Platelet Count 180 Thou/mm3 (140-440); RDW Standard Deviation 40.9 fL (35.1-43.9); Red Blood Count 4.04 Miln/mm3 (4.50-5.90); White Blood Count 5.2 Thou/mm3 (3.8-10.6)
[2024-08-09 06:21] LABS: Nucleated Red Blood Cell % 0 /100 WBC (0)
[2024-08-09 06:42] LABS: Alanine Aminotransferase 12 U/L (10-49); Albumin, Serum 3.5 gm/dL (3.4-4.8); Albumin/Globulin Ratio 1.2 (1.2-2.2); Alkaline Phosphatase 63 U/L (46-116); Anion Gap 3 (7-16); Aspartate Amino Transferase 27 U/L (0-34); BUN/Creatinine Ratio 12 Ratio (12-20); Bilirubin,Total 0.2 mg/dL (0.3-1.2); Blood Urea Nitrogen 12 mg/dL (9-23); Calcium 7.9 mg/dL (8.3-10.6); Calcium (Corrected) 8.3 mg/dL (8.5-10.1); Carbon Dioxide 25.7 mMol/L (20.0-31.0); Chloride 105 mMol/L (98-107); Estimated Creatinine Clearance 92.8 mL/min (>60); Glucose 104 mg/dL (74-106); Osmolality,Calculated 267 (275-295); Potassium 3.9 mMol/L (3.4-5.1); Sodium 134 mMol/L (136-145); Total Protein 6.5 gm/dL (5.7-8.2); eGFR > 60 See Note
[2024-08-09 07:41] LABS: Free T4 (Free Thyroxine) 0.92 ng/dL (0.89-1.76)
[2024-08-09] MEDS: DOXYCYCLINE 100 MG TABLET PO (07:59)
[2024-08-09] MEDS: THIAMINE 100 MG TABLET PO (07:59)
[2024-08-09] MEDS: ENOXAPARIN SOD INJ 40 MG/0.4 ML SYRINGE SC (07:59)
[2024-08-09] MEDS: FLUCONAZOLE 100 MG TABLET 400 MG PO (07:59)
[2024-08-09] MEDS: SENNA TABLET 1 TAB PO (07:59)
[2024-08-09] MEDS: FOLIC ACID 1 MG TABLET PO (07:59)
[2024-08-09] MEDS: PANTOPRAZOLE 40 MG TABLET PO (07:59)
[2024-08-09 08:00] VITALS: BP 108/67; PULSE 63; PULSE 70; RESP 19; TEMP 36.2; O2SAT 93
[2024-08-09] MEDS: cefuroxime axetiL 250 MG TABLET 500 MG PO (08:00)
[2024-08-09 08:01] VITALS: PULSE 70; RESP 100; RESP 20; O2SAT 100
[2024-08-09 12:00] VITALS: BP 106/62; PULSE 59; RESP 18; TEMP 36.1; O2SAT 99
--- NOTE | 2024-08-09 12:54 | ESDS_ITS ---
<Statement entered by Anabella Louis MD - 08/26/24 09:27> I reviewed above note and agree with findings and plans. I have also personally examined the patient with medicine team and went over assessment and plan with medical team including event planning intern and resident physician. Planned Discharge Date 08/09/24 DS: Providers Provider Date of admission: 08/07/24 15:24 Primary care physician: Physician No Primary/Family Admitting Provider: nAabella Louis MD Attending Provider on Admission: Anabella Louis MD Consults: 08/07/24 15:30 Consult to Infectious Diseases Routine Comment: Consulting Provider: Jimmy Wen Attending Provider on DC: Anabella Louis MD Discharging Provider: Anabella Louis MD DS: Diagnosis Problem List Completed Was Problem List Reviewed/Reconciled?: Yes Hospital Course Hospital Course Hospital course: Woody is a 58-year-old male past medical history of drug abuse who presents with 4 days of cough, shortness of breath, night sweats. Patient also complains of a skin infection of his right chest wall that has worsened since February. Patient states that he is also getting swelling in his right armpit, erythema and mild tenderness to palpation. In the ED patient presented with respiratory rate high 20s and tachycardic at 100, afebrile hypertensive blood pressure 149/88. White count 7 elevated ESR of 65, CRP 8.6 hyponatremic at 127, negative troponin, cocci IgM antibody positive, negative hep and HIV panel. CT chest showed cellulitis pattern in the upper anterior chest in the right axilla, poorly defined right apical pleural-based masslike area measuring 4.7 x 3.8 cm differential would include Pancoast lung tumor. EKG shows sinus rhythm with moderate intraventricular conduction delay. Sputum and blood cultures were collected. Infectious disease was consulted and recommended starting treatment for cocci and cellulitis. Patient was started on Fluconazole 400mg daily and cefuroxime and doxycycyline for cellulitis. Patient had no complications while admitted. We discussed whether or not to biopsy the lesion with ID. Plan was made to discharge on medications discussed previously and return to clinic in two weeks for repeat imaging and labs. We should receive the confirmatory test back from [facility] by then. If the mass/lesion has improved then continue the fluconazole treatment. If not, potentially biopsy the mass outpatient. Patient and family members were explained the plan and they agreed. During the patient's admission he was placed on CIWA protocol due to hx of chronic alcohol use. He did not show any signs of withdrawal during admission. Patient was stable upon discharge and states his SOB had improved. Saturating in high 90s on RA. #Pulmonary coccidiomycosis #Right apical mass #Skin lesion concerning for disseminated cocci #Alcohol use disorder #Alcohol withdrawal We wish you the very best. We appreciate the opportunity to be involved with your care. The patient's plan was discussed with attending Dr. Louis and senior resident Dr. Domingo Lisa, PGY1 Internal Medicine Senior resident attestation: Patient evaluated and examined at the bedside, plan of care discussed with rest of the team including my attending physician, except as noted. Recommend to continue antibiotics cefuroxime and doxycycline for 10 more days to complete treatment for cellulitis. Recommend continuing fluconazole/Diflucan 400 mg daily for 3 months, for valley fever/pulmonary coccidiomycosis. Recommend repeat chest x-ray and complete metabolic panel in 2 weeks after discharge from hospital and following up with your primary doctor with chest x- ray and blood work. Your primary doctor may consider ordering a biopsy of the lung mass if there is no change in size in 2 weeks after treatment for valley fever. Please follow up with Dr. Lane at the Resident's clinic to establish primary care. you may need to call the office to setup appointment in 2 weeks. [facility] [address] [place] [address] In case of worsening symptoms, please return to the emergency room. Domingo PGY2 Time Spent with Patient Time attestation: Total time spent providing and/or coordinating discharge services: Time spent: Greater than 30 minutes Exam Vital Signs Temp Pulse Resp BP Pulse Ox O2 Del Method 97.0 F 59 L 18 106/62 99 Room Air 08/09/24 12:00 08/09/24 12:00 08/09/24 12:00 08/09/24 12:00 08/09/24 12:08/09/24 12:00 Narrative Exam General: No acute distress, pleasant Skin: Erythema of right upper chest and axilla with small 1 cm by centimeter nodule and healing lesion with no purulent drainage HEENT: Normocephalic, atraumatic, conjunctiva clear, sclera non-icteric, EOM intact, PERRL, Heart: Regular rate and rhythm, no murmur or gallop Lungs: Coarse breath sounds, no wheezing Abdomen: Soft, nontender to palpation, nondistended Extremities: No amputations or deformities, cyanosis, edema or varicosities, peripheral pulses intact Neurologic: Moves all extremities spontaneously, no focal neurodeficits, A&O x 4 Psychiatric: Cooperative, normal mood and affect. Discharge Plan Plan Patient Disposition: HOME (Self Care) Care Plan Goals: Recommend to continue antibiotics cefuroxime and doxycycline for 10 more days to complete treatment for cellulitis. Recommend continuing fluconazole/Diflucan 400 mg daily for 3 months, for valley fever/pulmonary coccidiomycosis. Recommend repeat chest x-ray and complete metabolic panel in 2 weeks after discharge from hospital and following up with your primary doctor with chest x- ray and blood work. Your primary doctor may consider ordering a biopsy of the lung mass if there is no change in size in 2 weeks after treatment for valley fever. Please follow up with Dr. Lane at the [facility]ident[facility] clinic to establish primary care. you may need to call the office to setup appointment in 2 weeks. [facility] [address] [place] [address] In case of worsening symptoms, please return to the emergency room. Prescriptions/Referrals Prescriptions/Med Rec: New cefuroxime axetil 250 mg Tablet 500 mg PO BID 10 Days Qty: 40 0RF doxycycline hyclate 100 mg Tablet 100 mg PO BID 10 Days Qty: 20 0RF fluconazole 200 mg tablet 400 mg PO DAILY 90 Days Qty: 180 0RF Referrals: No Primary/Family,Physician [Primary Care Provider] - Patient/Caregiver Discharge Instructions Education Materials: Understanding Coccidioidomycosis Print Language: Slovenian Stand Alone Forms: Haley Award Info., Patient Portal Info Letter, Work/Release Restrictions Discharge Order Discharge Orders: Discharge (Routine); Ordered 08/09/24 Ordered By: Hubert Le Claire Quality Discharge Quality Measures VTE prophylaxis
== END 2024-08-09 12:41 | disposition home or self-care (01) ==
LOC: SERX 14:43 → SERHOLD 08-08 06:54 → S3NX 08-08 06:54
PROVIDERS: Internal Medicine Infectious Disease; Nurse Practitioner Family; Nurse Practitioner Primary Care; Admitting Provider Internal Medicine; Emergency Provider Emergency Medicine; Visit Provider Internal Medicine
DX: L03.111 Cellulitis of right axilla (principal); L03.313 Cellulitis of chest wall; I10 Essential (primary) hypertension; F17.210 Nicotine dependence, cigarettes, uncomplicated; F19.11 Other psychoactive substance abuse, in remission; F10.939 Alcohol use, unspecified with withdrawal, unspecified; D64.9 Anemia, unspecified; B38.9 Coccidioidomycosis, unspecified
CPT/HCPCS: 36415; 71046; 71260; 74177; 80053; 80061; 80074; 80307; 80320; 83036; 83605; 83735; 83880; 84100; 84145; 84153; 84439; 84443; 84484; 85025; 85610; 85652; 85730; 86140; 86480; 86635; 86703; 87040; 87081; 87205; 93005; 94640; 94762; 96365; 96366; 96372; 99285; A4649; A9270; G0378; J1650; J2543; J3371; J7030; J7050; Q9967; G0480; J3370

== ENCOUNTER 2024-08-29 09:07 | Outpatient (AMB) | payer MEDICAID, SELFPAY ==
[2024-08-29 09:18] VITALS: BP 102/68; PULSE 85; RESP 18; TEMP 36.8; O2SAT 96; BMI 30.5
--- NOTE | 2024-08-29 09:18 | PD.RESCLINIC ---
Vital Signs 08/29/24 09:18 Height 1.78 m Height Method Stated Weight 96.615 kg Weight Measurement Method Standing Scale BMI 30.5 BP 102/68 Blood Pressure Source Automatic Cuff Blood Pressure Location Left Upper Arm Position Sitting Respiration 18 Pulse 85 Pulse Source Monitor Temp 98.3 F Temp Source Temporal Artery Scan Pulse Oximetry (%) 96 Oxygen Delivery Method Room Air Allergies/Meds Allergies & Medications Allergies ciprofloxacin Allergy (Unknown, Verified 08/29/24 09:19) RASH,DIZZY Medication Reconciliation fluconazole 200 mg tablet 400 mg (2 x 200 mg) PO DAILY 90 days #180 tabs 08/09/24 [Rx Confirmed 08/29/24] cefuroxime axetil 250 mg tablet 250 mg PO BID 08/29/24 [History Confirmed 08/29/24] tamsulosin 0.4 mg capsule (Flomax) 0.4 mg PO QHS #14 caps 08/29/24 [Rx] MA Intake Visit Data Collection New Patient or Established: Established Patient (seen at [facility] within 3 years) Seen by Clinical Staff ONLY (RN/MA): No Pain Present Currently: No Pain scale:: 0 Pain Scale Used: Honeycutt-Ndiaye/Numerical Blow Machine Tender Starch Spraying Required: No PCP or OBGYN visit in last 3 months: Yes Do You Feel Safe at Home: Yes Authorities Contacted: N/A Smoking Status Smoking Status: Light (< 1 pack/day) Cessation Counseling Provided: KEIRA was advised that quitting smoking is the single most important factor to protect the health of themselves and their family. Discussed the benefits of quitting smoking with patient. Encouraged patient to quit smoking and provided Cessation assistance materials and resources. Tobacco Use: Cigarette Years smoked: 20 Are you interested in quitting?: No Immunization / Flu Flu Vaccine in the Last 12 Months: No Flu Vaccine Exclusion Criteria: No Exclusion Criteria Past Medical History Past Medical History CARDIAC: Negative Cardiac Disorders or Congestive Heart Failure RESPIRATORY: Negative Chronic Obstructive Pulmonary Disease (COPD) or Asthma GENITOURINARY: Negative Renal Disease ENDOCRINE: Negative Diabetes Mellitus Type 1 or Diabetes Mellitus Type 2 HEMATOLOGIC: Negative Sickle Cell Disease Social History SMOKING STATUS: Smoking status: Light (< 1 pack/day) ALCOHOL: Alcohol Intake: Current ALCOHOL FREQUENCY: Alcohol Intake Frequency: 3 or More Drinks per Day HOUSING: Housing: Truck LIVES WITH: Lives With: Children Patient Jasper Velazquez Social History Living Situation History Housing: Truck Housing Other:: Pt is staying with his sonColt Tobacco History Smoking Status: Light (< 1 pack/day) Alcohol History Alcohol Intake: Current Alcohol Intake Frequency: 3 or More Drinks per Day Substance Use History Substance Use: Meth, Marijuana Domestic Abuse History Do You Feel Safe at Home: Yes Review of Systems Report any current symptoms Only answer those that you have currently: Past Medical History Past Medical History Have you ever been diagnosed with any of the following: Cardiology Problems Congestive Heart Failure: No Respiratory Problems Chronic Obstructive Pulmonary Disease (COPD): No Asthma: No Genital/Urinary Problems Renal Disease: No Endocrine Problems Diabetes Mellitus Type 1: No Diabetes Mellitus Type 2: No Blood Problems Sickle Cell Disease: No History of Present Illness HPI Narrative Mr. Merino is a 58-year-old male with a past medical history of methamphetamine abuse, was recently discharged from the hospital following a diagnosis of pulmonary coccidiomycosis and chest wall cellulitis. He was discharged on fluconazole 400 mg daily and dual antibiotics for cellulitis. He is seen in clinic for follow-up visit, there was concern of apical pulmonary/pleural mass, plan to repeat chest x-ray to see if any change in the lesion is discernible, patient may eventually require CT chest at a later date. Noted to have resolution of chest wall cellulitis, but noted discharging sinuses oozing pus and blood. There is some swelling below the wound but no fluctuance that would be concerning for an abscess. Patient uses OTC mupirocin on the wound. Will send the patient to general surgery for excisional debridement and possible histopathology and microbiology analysis to further guide antifungal/antibiotic treatment. Patient also reported symptoms of urinary hesitancy and urgency. Will get PSA level. No prostatomegaly seen on CT abdomen pelvis. Patient agreed to a trial of Flomax. Patient has negative QuantiFERON, tuberculosis ruled out. Finding of calcified granulomas and apical pleural-based masslike area likely coccidiomycosis, will get repeat CT and biopsy of the lesion if no improvement on imaging following treatment for coccidiomycosis. Review of Systems Review of Systems Systems Reviewed: All systems reviewed, normal except as documented Objective/Exam Narrative Physical exam: General: AOx3, cooperative, Skin: Noted to discharging sinuses right anterior chest, oozing pus and blood. 2 x 2 cm swelling underlying the superior sinus. Gauze dressing applied. HEENT: Atraumatic/normocephalic, GARIMA, neck supple Heart: RRR, S1 and S2 without clicks or murmurs Lungs: Clear on auscultation bilaterally, no difficulty breathing Abdomen: Soft, nontender. Bowel sounds present . Vascular: Peripheral pulses palpable Neuro: No focal neurological deficits noted. Assessment & Plan Diagnosis / Problem List (1) Coccidioidomycosis: Status: Acute Assessment & Plan: Recently discharged from the hospital two weeks ago, following a diagnosis of pulmonary coccidiomycosis and chest wall cellulitis. He was discharged on fluconazole 400 mg daily and dual antibiotics for cellulitis. There was concern for disseminated coccidiomycosis initially, due to involvement of skin as well as pleura, infectious disease was on board, with fluconazole once daily at this point, we will continue with fluconazole of note patient has made symptomatic improvement in terms of shortness of breath and cough since starting treatment. Will continue close observation for any worsening of symptoms and need for additional therapy. Pending histopathology analysis to rule out cutaneous coccidiomycosis Plan: - Continue fluconazole 400mg qday for Pulmonary coccidiomycosis. (2) Abscess or cellulitis of chest wall: Status: Acute Assessment & Plan: Noted to have resolution of chest wall cellulitis, but noted discharging sinuses oozing pus and blood. There is some swelling below the wound but no fluctuance that would be concerning for an abscess. Patient uses OTC mupirocin on the wound. Will send the patient to general surgery for excisional debridement and possible histopathology and microbiology analysis to further guide antifungal/antibiotic Plan: - completed antibiotics for cellulitis, continue with muprocin ointment OTC, - general surgery referral to dr Brenner for excisional debridement and pathology / microbiology analysis. (3) Mass of upper lobe of lung: Status: Acute Assessment & Plan: CT chest reported as Poorly defined right apical pleural-based masslike area, measuring 4.7 x 3.8 cm, Patient has negative QuantiFERON, tuberculosis ruled out. Finding of calcified granulomas and apical pleural-based masslike area likely coccidiomycosis, will get repeat CT and biopsy of the lesion if no improvement on imaging following treatment for coccidiomycosis. Plan: - Repeat CT chest with possible biopsy if no improvement in mass following treatment for Cocci. (4) Urinary hesitancy: Status: Acute Assessment & Plan: Patient also reported symptoms of urinary hesitancy and urgency. Will get PSA level. No prostatomegaly seen on CT abdomen pelvis. Patient agreed to a trial of Flomax. Plan: -Flomax 0.4 mg nightly Orders: Orders Basic Metabolic Panel Today XR chest 2V Today Liver Panel Today Referrals General surgery Additional Assessment Attending note: I, Nathaniel Abel MD, attest that I was physically present for the moses portions of the service and evaluated the patient with the resident and I reviewed and discussed the case with the resident and agree with the resident's findings and plans of care as documented above. New patient to clinic. 4-year-old male recently admitted to hospital with skin infection of right chest wall present for 6 months with axillary swelling, erythema, and tenderness to palpation. Initial workup including CT showed cellulitis prior in the upper anterior chest in the right axilla along with a poorly defined right apical pleural-based masslike area measuring 4.7 x 3.8 cm. Initial testing was cocci IgM positive along with a sed rate of 65, CRP of 8.6. Infectious disease consultation was obtained. Patient was treated for cellulitis and cocci. Patient is on fluconazole 400 mg daily. Patient follows up today, noting drainage from skin lesion. Has completed antibiotics for cellulitis. Continued persistent of skin lesion since hospital discharge, would refer for excisional biopsy by general surgery. Will recheck a chest x-ray to see if there has been any change in the right apical mass that is suspected coccidioidomycosis. If skin lesion is biopsied, it would need to be cultured and seen by pathology to discern if disseminated coccidioidomycosis. For now, continue fluconazole 400 mg daily. Recheck CMP. Nathaniel Abel MD Physician Billing New Patient New Patient: E/M Level 3-CPT 39509 Office Procedures [facility] Level of Care Nursing/Assessment Patient Status: Established Patient Nursing Assessment/Reassessment: Medication Reconciliation, Update PMH in EMR and Vital Signs Coordination of Care: Complex Care and Chronic Disease 1-5, Consent,records obtained, informed consent, Education Simp Pt/Fam, Lab and Imaging orders and Staff clarify orders Established Patient Charge Established Patient Point Assignment: 100 Established Patient Point Charge: EP Level 3 (80-115)
== END 2024-08-29 10:34 | disposition home or self-care (01) ==
LOC: HODAHC 09:07
PROVIDERS: Supervising Provider Internal Medicine; Visit Provider Student in an Organized Health Care Education/Training Program
DX: B38.2 Pulmonary coccidioidomycosis, unspecified (principal); L03.313 Cellulitis of chest wall; R39.11 Hesitancy of micturition; R39.15 Urgency of urination
CPT/HCPCS: 99213; G0463

== ENCOUNTER → 2024-08-29 | Outpatient (CLI) | payer MEDICAID, SELFPAY ==
--- NOTE | 2024-08-29 12:00 | XR_ITS ---
Examination: PA lateral chest 2 views TECHNIQUE: Upright PA lateral chest 2 views Exam date and time: August 29, 2024 1208 hours Comparison August 07, 2024 INDICATIONS: Diagnosis coccidiomycosis, chest pain on the right side 6 months FINDINGS: Normal heart size Stable bilateral granulomatous Mild hyperexpansion No pneumonia or pulmonary edema Stable scarring in the right upper lobe IMPRESSION: Stable granulomas bilaterally Stable scarring right upper lobe No interval pneumonia or pulmonary edema
== END | disposition home or self-care (01) ==
PROVIDERS: PCP Student in an Organized Health Care Education/Training Program; Referring Provider Student in an Organized Health Care Education/Training Program; Visit Provider Student in an Organized Health Care Education/Training Program
DX: J84.10 Pulmonary fibrosis, unspecified (principal); R91.8 Other nonspecific abnormal finding of lung field
CPT/HCPCS: 71046

== ENCOUNTER 2024-09-26 08:49 | Outpatient (AMB) | payer MEDICAID, SELFPAY ==
[2024-09-26 08:59] VITALS: BP 125/82; PULSE 84; RESP 16; TEMP 36.4; O2SAT 97; BMI 30.4
--- NOTE | 2024-09-26 08:59 | ACNOTE_ITS ---
Vital Signs 09/26/24 08:59 Height 1.78 m Height Method Stated Weight 96.162 kg Weight Measurement Method Standing Scale BMI 30.4 BP 125/82 Blood Pressure Source Automatic Cuff Blood Pressure Location Left Upper Arm Position Sitting Respiration 16 Pulse 84 Pulse Source Monitor Temp 97.6 F Temp Source Oral Pulse Oximetry (%) 97 Oxygen Delivery Method Room Air Allergies/Meds Allergies & Medications Allergies ciprofloxacin Allergy (Unknown, Verified 09/26/24 09:02) RASH,DIZZY Medication Reconciliation fluconazole 200 mg tablet 400 mg (2 x 200 mg) PO DAILY 90 days #180 tabs 08/09/24 [Rx Confirmed 09/26/24] cefuroxime axetil 250 mg tablet 250 mg PO BID 08/29/24 [History Confirmed 09/26/24] tamsulosin 0.4 mg capsule (Flomax) 0.4 mg PO QHS #14 caps 08/29/24 [Rx Confirmed 09/26/24] doxycycline hyclate 100 mg capsule 100 mg PO BID #20 caps 09/26/24 [Rx] MA Intake Visit Data Collection New Patient or Established: Established Patient (seen at [facility] within 3 years) Seen by Clinical Staff ONLY (RN/MA): No Pain Present Currently: Yes Pain Location: Hip and Knee Pain scale:: 7 Pain Scale Used: Honeycutt-Ndiaye/Numerical PCP or OBGYN visit in last 3 months: Yes Do You Feel Safe at Home: Yes Authorities Contacted: N/A Smoking Status Smoking Status: Light (< 1 pack/day) Cessation Counseling Provided: KEIRA was advised that quitting smoking is the single most important factor to protect the health of themselves and their family. Discussed the benefits of quitting smoking with patient. Encouraged patient to quit smoking and provided Cessation assistance materials and resources. Tobacco Use: Cigarette Years smoked: 20 Are you interested in quitting?: No Immunization / Flu Flu Vaccine in the Last 12 Months: No Flu Vaccine Exclusion Criteria: No Exclusion Criteria Past Medical History Past Medical History CARDIAC: Negative Cardiac Disorders or Congestive Heart Failure RESPIRATORY: Negative Chronic Obstructive Pulmonary Disease (COPD) or Asthma GENITOURINARY: Negative Renal Disease ENDOCRINE: Negative Diabetes Mellitus Type 1 or Diabetes Mellitus Type 2 HEMATOLOGIC: Negative Sickle Cell Disease Social History SMOKING STATUS: Smoking status: Light (< 1 pack/day) ALCOHOL: Alcohol Intake: Current ALCOHOL FREQUENCY: Alcohol Intake Frequency: 3 or More Drinks per Day HOUSING: Housing: Truck LIVES WITH: Lives With: Children Patient Portal Questionaires Social History Living Situation History Housing: Truck Housing Other:: Pt is staying with his son, Colt Tobacco History Smoking Status: Light (< 1 pack/day) Alcohol History Alcohol Intake: Current Alcohol Intake Frequency: 3 or More Drinks per Day Substance Use History Substance Use: Meth, Marijuana Domestic Abuse History Do You Feel Safe at Home: Yes Review of Systems Report any current symptoms Only answer those that you have currently: Past Medical History Past Medical History Have you ever been diagnosed with any of the following: Cardiology Problems Congestive Heart Failure: No Respiratory Problems Chronic Obstructive Pulmonary Disease (COPD): No Asthma: No Genital/Urinary Problems Renal Disease: No Endocrine Problems Diabetes Mellitus Type 1: No Diabetes Mellitus Type 2: No Blood Problems Sickle Cell Disease: No History of Present Illness HPI Narrative Mr. Merino is a 58-year-old male with a past medical history of methamphetamine abuse, was recently discharged from the hospital following a diagnosis of pulmonary coccidiomycosis and chest wall cellulitis. He was discharged on f luconazole 400 mg daily and dual antibiotics for cellulitis. He is seen in clinic for follow-up visit, there was concern of apical pulmonary/pleural mass, plan to repeat chest x-ray to see if any change in the lesion is discernible, patient may eventually require CT chest at a later date. Noted to have resolution of chest wall cellulitis, but noted discharging sinuses oozing pus and blood. There is some swelling below the wound but no fluctuance that would be concerning for an abscess. Patient uses OTC mupirocin on the wound. Will send the patient to general surgery for excisional debridement and possible histopathology and microbiology analysis to further guide antifungal/antibiotic treatment. 09/26/2024, patient seen in clinic for follow-up visit, labs were ordered last visit, but patient did not get labs. Awaiting general surgery consultation, pending insurance authorization. On follow-up, cellulitis has markedly improved, but patient does have sinus tracts which have crusted openings, no active pus or blood discharge noted, patient reported that he has been leaving them open even when taking a shower, counseled patient regarding keeping the wound dry and clean, and covering them up when taking a shower, reported no fever, but reported new nodular swelling in the right axilla, around 2 into 2 cm, possibly lymph node draining the active infection in anterior chest wall, will initiate dermatology referral, for possible disseminated cocci, currently on treatment with fluconazole 400 mg daily. Already completed antibiotic for cellulitis, due to concern for abscess formation and active infection and draining sinus, will order in another repeat course of antibiotic. Will follow- up again with labs, front staff working on insurance authorizations for general surgery and dermatology referrals. Review of Systems Review of Systems Systems Reviewed: All systems reviewed, normal except as documented Objective/Exam Narrative Physical exam: General: AOx3, cooperative, Skin: Noted two discharging sinuses right anterior chest, crusted at the opening, no active drainage noted,. Cellulitis improved compared to last visit, new 2x2 cm swelling right axilla, possibly lymph node draining anterior chest wall infection. Overall poor skin hygiene, visible dirt and goo around the wound. HEENT: Atraumatic/normocephalic, GARIMA, neck supple Heart: RRR, S1 and S2 without clicks or murmurs Lungs: Clear on auscultation bilaterally, no difficulty breathing Abdomen: Soft, nontender. Bowel sounds present . Vascular: Peripheral pulses palpable Neuro: No focal neurological deficits noted. Assessment & Plan Diagnosis / Problem List (1) Abscess or cellulitis of chest wall: Status: Acute Assessment & Plan: Cellulitis now resolved, anterior chest wall sinuses present, no active discharge is noted, also noted axillary lymph node swelling. Possibly underlying infection anterior chest wall. Will order antibiotic for possible underlying abscess. Plan: - Doxycycline twice daily for 10 days - general surgery referral to dr Brenner for excisional debridement and pathology / microbiology analysis. Pending insurance authorization. (2) Coccidioidomycosis: Status: Acute Assessment & Plan: Recently discharged from the hospital two weeks ago, following a diagnosis of pulmonary coccidiomycosis and chest wall cellulitis. He was discharged on fluconazole 400 mg daily and dual antibiotics for cellulitis. There was concern for disseminated coccidiomycosis initially, due to involvement of skin as well as pleura, infectious disease was on board, with fluconazole once daily at this point, we will continue with fluconazole of note patient has made symptomatic improvement in terms of shortness of breath and cough since starting treatment. Will continue close observation for any worsening of symptoms and need for additional therapy. Pending histopathology analysis to rule out cutaneous coccidiomycosis Plan: - Continue fluconazole 400mg qday for Pulmonary coccidiomycosis. (3) Mass of upper lobe of lung: Status: Acute Assessment & Plan: CT chest reported as Poorly defined right apical pleural-based masslike area, measuring 4.7 x 3.8 cm, Patient has negative QuantiFERON, tuberculosis ruled out. Finding of calcified granulomas and apical pleural-based masslike area likely coccidiomycosis, will get repeat CT and biopsy of the lesion if no improvement on imaging following treatment for coccidiomycosis. Plan: - Repeat CT chest with possible biopsy if no improvement in mass following treatment for Cocci. (4) Urinary hesitancy: Status: Acute Assessment & Plan: Patient also reported symptoms of urinary hesitancy and urgency. Will get PSA level. No prostatomegaly seen on CT abdomen pelvis. Patient agreed to a trial of Flomax. Plan: -Flomax 0.4 mg nightly Orders: Referrals Infectious Disease B38.9 - Coccidioidomycosis, unspecified Additional Assessment Internal Medicine Attending Note: Case discussed with and agree with note and management plan of Resident Physician as per Resident's Note above. Issues of concern for present visit are as follows: Follow-up visit. Cellulitis on chest wall has improved. Continues to have draining sinuses that are crusting over. New nodules or swelling in right axilla, question lymph node. We will empirically treat with doxycycline, patient remains on fluconazole for disseminated coccidioidomycosis. Referrals made to general surgery for assessment of chest wall, possible excision of axillary nodular swelling, and dermatology referral. Nathaniel Abel MD Physician Billing Established Patient Established Patient: E/M Level 3-CPT 44423 Office Procedures [facility] Level of Care Nursing/Assessment Patient Status: Established Patient Nursing Assessment/Reassessment: Medication Reconciliation, Update PMH in EMR and Vital Signs Coordination of Care: Complex Care and Chronic Disease 1-5, Consent,records obtained, informed consent, Education Simp Pt/Fam, Results/Orders obtained and Staff clarify orders Established Patient Charge Established Patient Point Assignment: 90 Established Patient Point Charge: Level 3 (80-115)
== END 2024-09-26 10:05 | disposition home or self-care (01) ==
PROVIDERS: PCP Student in an Organized Health Care Education/Training Program; Referring Provider Student in an Organized Health Care Education/Training Program; Supervising Provider Internal Medicine; Visit Provider Student in an Organized Health Care Education/Training Program
DX: B38.2 Pulmonary coccidioidomycosis, unspecified (principal); R39.11 Hesitancy of micturition; R39.15 Urgency of urination; R91.8 Other nonspecific abnormal finding of lung field
CPT/HCPCS: 99213; G0463

== ENCOUNTER 2024-10-24 09:02 | Outpatient (AMB) | payer MEDICAID, SELFPAY ==
[2024-10-24 09:11] VITALS: BP 148/87; PULSE 77; RESP 16; TEMP 36.4; O2SAT 98; BMI 31.4
--- NOTE | 2024-10-24 09:11 | PD.RESCLINIC ---
Vital Signs 10/24/24 09:11 Height 1.78 m Height Method Stated Weight 99.393 kg Weight Measurement Method Standing Scale BMI 31.4 BP 148/87 H Blood Pressure Source Automatic Cuff Blood Pressure Location Left Upper Arm Position Sitting Respiration 16 Pulse 77 Pulse Source Monitor Temp 97.5 F Temp Source Temporal Artery Scan Pulse Oximetry (%) 98 Oxygen Delivery Method Room Air Allergies/Meds Allergies & Medications Allergies ciprofloxacin Allergy (Unknown, Verified 10/24/24 09:12) RASH,DIZZY Medication Reconciliation fluconazole 200 mg tablet 400 mg (2 x 200 mg) PO DAILY 90 days #180 tabs 08/09/24 [Rx Confirmed 10/24/24] cefuroxime axetil 250 mg tablet 250 mg PO BID 08/29/24 [History Confirmed 10/24/24] tamsulosin 0.4 mg capsule (Flomax) 0.4 mg PO QHS #14 caps 08/29/24 [Rx Confirmed 10/24/24] doxycycline hyclate 100 mg capsule 100 mg PO BID #20 caps 09/26/24 [Rx Confirmed 10/24/24] MA Intake Visit Data Collection New Patient or Established: Established Patient (seen at [facility] within 3 years) Seen by Clinical Staff ONLY (RN/MA): No Pain Present Currently: No Pain Scale Used: Honeycutt-Ndiaye/Numerical Econometrics Professor Required: No PCP or OBGYN visit in last 3 months: Yes Hx Now: No Do You Feel Safe at Home: Yes Authorities Contacted: N/A Smoking Status Smoking Status: Light (< 1 pack/day) Cessation Counseling Provided: KEIRA was advised that quitting smoking is the single most important factor to protect the health of themselves and their family. Discussed the benefits of quitting smoking with patient. Encouraged patient to quit smoking and provided Cessation assistance materials and resources. Tobacco Use: Cigarette Years smoked: 20 Are you interested in quitting?: No Immunization / Flu Flu Vaccine in the Last 12 Months: No Flu Vaccine Exclusion Criteria: No Exclusion Criteria Past Medical History Past Medical History CARDIAC: Negative Cardiac Disorders or Congestive Heart Failure RESPIRATORY: Negative Chronic Obstructive Pulmonary Disease (COPD) or Asthma GENITOURINARY: Negative Renal Disease ENDOCRINE: Negative Diabetes Mellitus Type 1 or Diabetes Mellitus Type 2 HEMATOLOGIC: Negative Sickle Cell Disease Social History SMOKING STATUS: Smoking status: Light (< 1 pack/day) ALCOHOL: Alcohol Intake: Current ALCOHOL FREQUENCY: Alcohol Intake Frequency: 3 or More Drinks per Day HOUSING: Housing: Truck LIVES WITH: Lives With: Children Patient Portal Caroline Social History Living Situation History Housing: Truck Housing Other:: Pt is staying with his son, Colt Tobacco History Smoking Status: Light (< 1 pack/day) Alcohol History Alcohol Intake: Current Alcohol Intake Frequency: 3 or More Drinks per Day Substance Use History Substance Use: Meth, Marijuana Domestic Abuse History Do You Feel Safe at Home: Yes Review of Systems Report any current symptoms Only answer those that you have currently: Past Medical History Past Medical History Have you ever been diagnosed with any of the following: Cardiology Problems Congestive Heart Failure: No Respiratory Problems Chronic Obstructive Pulmonary Disease (COPD): No Asthma: No Genital/Urinary Problems Renal Disease: No Endocrine Problems Diabetes Mellitus Type 1: No Diabetes Mellitus Type 2: No Blood Problems Sickle Cell Disease: No History of Present Illness HPI Narrative Mr. Merino is a 58-year-old male with a past medical history of methamphetamine abuse, was recently discharged from the hospital following a diagnosis of pulmonary coccidiomycosis and chest wall cellulitis. He was discharged on fluconazole 400 mg daily and dual antibiotics for cellulitis. He is seen in clinic for follow-up visit, there was concern of apical pulmonary/pleural mass, plan to repeat chest x-ray to see if any change in the lesion is discernible, patient may eventually require CT chest at a later date. Noted to have resolution of chest wall cellulitis, but noted discharging sinuses oozing pus and blood. There is some swelling below the wound but no fluctuance that would be concerning for an abscess. Patient uses OTC mupirocin on the wound. Will send the patient to general surgery for excisional debridement and possible histopathology and microbiology analysis to further guide antifungal/antibiotic treatment. 09/26/2024, patient seen in clinic for follow-up visit, labs were ordered last visit, but patient did not get labs. Awaiting general surgery consultation, pending insurance authorization. On follow-up, cellulitis has markedly improved, but patient does have sinus tracts which have crusted openings, no active pus or blood discharge noted, patient reported that he has been leaving them open even when taking a shower, counseled patient regarding keeping the wound dry and clean, and covering them up when taking a shower, reported no fever, but reported new nodular swelling in the right axilla, around 2 into 2 cm, possibly lymph node draining the active infection in anterior chest wall, will initiate dermatology referral, for possible disseminated cocci, currently on treatment with fluconazole 400 mg daily. Already completed antibiotic for cellulitis, due to concern for abscess formation and active infection and draining sinus, will order in another repeat course of antibiotic. Will follow-up again with labs, front staff working on insurance authorizations for general surgery and dermatology referrals. 10/24/2024, patient seen on follow-up, reviewed labs including serum electrolytes and renal function, which were normal. Physical exam showed improvement in wound external opening, no active discharge noted, wound opening crusted over, palpation around the skin reveals likely fistulous tract to deeper tissue, following antibiotic use, less likely active bacterial infection, likely chronic inflammatory change versus cutaneous manifestation of coccidiomycosis. No swelling in the axilla has now reduced in size but multiple small swelling in the right axilla are noted, corresponding to lymphatic drainage of rt sided anterior chest wall. Still waiting on insurance authorization for general surgery referral. Review of Systems Review of Systems Systems Reviewed: All systems reviewed, normal except as documented Objective/Exam Narrative Physical exam: General: AOx3, cooperative, Skin: Noted two discharging sinuses right anterior chest, crusted at the opening, no active drainage noted,. Cellulitis improved compared to last visit, multiple small nodular swellings right axilla, possibly lymph nodes draining rt. anterior chest wall infection. HEENT: Atraumatic/normocephalic, GARIMA, neck supple Heart: RRR, S1 and S2 without clicks or murmurs Lungs: Clear on auscultation bilaterally, no difficulty breathing Abdomen: Soft, nontender. Bowel sounds present . Vascular: Peripheral pulses palpable Neuro: No focal neurological deficits noted. Assessment & Plan Diagnosis / Problem List (1) Abscess or cellulitis of chest wall: Status: Acute Assessment & Plan: Cellulitis now resolved, anterior chest wall sinuses present, Physical exam showed improvement in wound external opening, no active discharge noted, wound opening crusted over, palpation around the skin reveals likely fistulous tract to deeper tissue, following antibiotic use, less likely active bacterial infection, likely chronic inflammatory change versus cutaneous manifestation of coccidiomycosis. No swelling in the axilla has now reduced in size but multiple small swelling in the right axilla are noted, corresponding to lymphatic drainage of rt sided anterior chest wall. Still waiting on insurance authorization for general surgery referral. Plan: - Continue fluconazole, - general surgery referral to dr Brenner for excisional debridement and pathology / microbiology analysis. Pending insurance authorization. (2) Coccidioidomycosis: Status: Acute Assessment & Plan: Recently discharged from the hospital two weeks ago, following a diagnosis of pulmonary coccidiomycosis and chest wall cellulitis. He was discharged on fluconazole 400 mg daily and dual antibiotics for cellulitis. There was concern for disseminated coccidiomycosis initially, due to involvement of skin as well as pleura, infectious disease was on board, with fluconazole once daily at this point, we will continue with fluconazole of note patient has made symptomatic improvement in terms of shortness of breath and cough since starting treatment. Will continue close observation for any worsening of symptoms and need for additional therapy. Pending histopathology analysis to rule out cutaneous coccidiomycosis Plan: - Continue fluconazole 400mg qday for Pulmonary coccidiomycosis. (3) Mass of upper lobe of lung: Status: Acute Assessment & Plan: CT chest reported as Poorly defined right apical pleural-based masslike area, measuring 4.7 x 3.8 cm, Patient has negative QuantiFERON, tuberculosis ruled out. Finding of calcified granulomas and apical pleural-based masslike area likely coccidiomycosis, will get repeat CT and biopsy of the lesion if no improvement on imaging following treatment for coccidiomycosis. Plan: - Repeat CT chest with possible biopsy if no improvement in mass following treatment for Cocci. (4) Urinary hesitancy: Status: Acute Assessment & Plan: Patient also reported symptoms of urinary hesitancy and urgency. Will get PSA level. No prostatomegaly seen on CT abdomen pelvis. Patient agreed to a trial of Flomax. Plan: -Flomax 0.4 mg nightly Additional Assessment Internal Medicine Attending Note: Patient examined and interviewed. Case discussed with and agree with note and management plan of Resident Physician as per Resident's Note above. Issues of concern for present visit are as follows: Follow-up visit. Patient has noted improvement in right chest wall. On examination, 2 areas of prior drainage now crusted over. There is an approximately 2 inch x 1 inch area of hard induration over the right upper chest wall superior to the nipple. There are a few palpable shot like pea-sized lymph nodes, mobile, in the right axilla. Fairly nontender to palpation in all areas. Patient reports he felt what he thought was a fluid pocket on his right side below the axilla that he was concerned was going to drain. Labs reviewed for today, essentially unremarkable except for glucose of 107. Blood pressure noted to be elevated today at 148/87, this is the first elevated reading this year. Patient has put on approximately 3 kg of weight in the last month. 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 I am not impressed for any bacterial infection in the chest wall that would necessitate further antibiotics. I still would pursue surgical evaluation for possible excision of the area on the right chest wall and exploration of any draining sinus tracts. 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 Nathaniel Abel MD Physician Billing Established Patient Established Patient: E/M Level 4-CPT 51899 Office Procedures [facility] Level of Care Nursing/Assessment Patient Status: Established Patient Nursing Assessment/Reassessment: Medication Reconciliation, Update PMH in EMR and Vital Signs Coordination of Care: Complex Care and Chronic Disease 1-5, Consent,records obtained, informed consent, Education Simp Pt/Fam, Results/Orders obtained and Staff clarify orders Established Patient Charge Established Patient Point Assignment: 90 Established Patient Point Charge: EP Level 3 (80-115)
== END 2024-10-24 10:13 | disposition home or self-care (01) ==
LOC: HODAHC 09:02
PROVIDERS: PCP Student in an Organized Health Care Education/Training Program; Referring Provider Student in an Organized Health Care Education/Training Program; Supervising Provider Student in an Organized Health Care Education/Training Program; Visit Provider Student in an Organized Health Care Education/Training Program
DX: L03.313 Cellulitis of chest wall (principal); B38.2 Pulmonary coccidioidomycosis, unspecified; R39.11 Hesitancy of micturition; R39.15 Urgency of urination
CPT/HCPCS: 99213; G0463

== ENCOUNTER 2024-11-17 13:07 | Outpatient (AMB) | payer MEDICAID, SELFPAY ==
[2024-11-17 13:29] VITALS: BP 148/81; PULSE 99; RESP 18; TEMP 36.8; O2SAT 91; BMI 31.9
--- NOTE | 2024-11-17 13:29 | GSCOFFNT_ITS ---
Vital Signs - Gen Srg Clinic 11/17/24 13:29 Height 1.78 m Height Method Stated Weight 101.236 kg Weight Measurement Method Standing Scale BMI 31.9 BP 148/81 H Blood Pressure Source Automatic Cuff Blood Pressure Location Left Upper Arm Position Sitting Respiration 18 Pulse 99 Pulse Source Monitor Temp 98.3 F Temp Source Temporal Artery Scan Pulse Oximetry (%) 91 L Oxygen Delivery Method Room Air Med/Allergies Allergies & Medications Allergies ciprofloxacin Allergy (Unknown, Verified 10/24/24 09:12) RASH,DIZZY MA Intake Visit Data Collection New Patient or Established: Established Patient (seen at [facility] within 3 years) Seen by Clinical Staff ONLY (RN/MA): No Reason for Visit:: abcess of chest wall Pain Present Currently: Yes Pain scale:: 6 PCP or OBGYN visit in last 3 months: Yes Smoking Status Smoking Status: Light (< 1 pack/day) Cessation Counseling Provided: KEIRA was advised that quitting smoking is the single most important factor to protect the health of themselves and their family. Discussed the benefits of quitting smoking with patient. Encouraged patient to quit smoking and provided Cessation assistance materials and resources. Tobacco Use: Cigarette Years smoked: 30 Are you interested in quitting?: No Immunization / Flu Flu Vaccine in the Last 12 Months: No Flu Vaccine Exclusion Criteria: Refused by Patient Past Medical History Past Medical History CARDIAC: Negative Cardiac Disorders or Congestive Heart Failure RESPIRATORY: Negative Chronic Obstructive Pulmonary Disease (COPD) or Asthma GENITOURINARY: Negative Renal Disease ENDOCRINE: Negative Diabetes Mellitus Type 1 or Diabetes Mellitus Type 2 HEMATOLOGIC: Negative Sickle Cell Disease Social History SMOKING STATUS: Smoking status: Light (< 1 pack/day) ALCOHOL: Alcohol Intake: Current ALCOHOL FREQUENCY: Alcohol Intake Frequency: 3 or More Drinks per Day HOUSING: Housing: [employer] LIVES WITH: Lives With: Children HPI HPI Narrative 59M with coccidiomycosis diagnosed 07/2024 here for evaluation of right chest wall and axillary lesions. Pt reports he noticed the lesions first on the chest a few months ago; he does recall there being a spider on his chest shortly before the symptoms began but he is unsure if he was bitten. The lesions on the chest became swollen and drained, but have since scarred over and are not currently draining. Later pt developed similar lesions in the right axilla which do have some serous drainage. He reports feeling well otherwise, is continued on fluconazole for the cocci and denies any shortness of breath, is not requiring oxygen. Pt denies any history of similar lesions in the past PMH: Coccidiomycosis PSHx: Tonsillectomy, hernia repair, knee surgeries Meds: Fluconazole Allergies: Cipro Social hx: smokes 10 cigarettes per day, previously smoked 2 packs per day ROS Review of Systems Systems Reviewed: All systems reviewed, normal except as documented Objective/Exam General General Appearance: alert, cooperative and well groomed Chest Chest inspection: Present other (right chest with two healed lesions, one more superomedial with minimal eschar, the second inferolateral containing granuloma which pt states has been present for some time. R axilla with two areas of swelling which are exquisitely tender, no surrounding erythema) Resp Respiratory exam: Absent respiratory distress Assessment & Plan Diagnosis / Problem List (1) Abscess or cellulitis of chest wall: Status: Acute Assessment & Plan: 59M with coccidiomycosis on fluconazole referred for evaluation of right chest and axillary lesions. I explained that excisional biopsy can be undertaken but would primarily be for diagnostic purposes, as the lesions may continue to drain and/or may recur. I explained the risk of infection which is heightened in the setting of cigarette smoking. All questions were answered and pt is agreeable to proceeding Plan: Plan for excisional biopsy of right chest and right axillary lesions in OR under MAC anesthesia Office Procedures [facility] Level of Care Nursing/Assessment Patient Status: Established Patient Nursing Assessment/Reassesment: Medication Reconciliation, Update PMH in EMR and Vital Signs Coordination of Care: Complex Care and Chronic Disease 1-5, Consent,records obtained, informed consent, Education Simp Pt/Fam, Results/Orders obtained and Staff clarify orders Established Patient Charge Established Patient Point Assignment: 90 Established Patient Point Charge: EP Level 3 (80-115) Patient Portal Questionaires Social History Living Situation History Housing: Truck Housing Other:: Pt is staying with his sonColt Tobacco History Smoking Status: Light (< 1 pack/day) Alcohol History Alcohol Intake: Current Alcohol Intake Frequency: 3 or More Drinks per Day Substance Use History Substance Use: Meth, Marijuana Review of Systems Report any current symptoms Only answer those that you have currently: Past Medical History Past Medical History Have you ever been diagnosed with any of the following: Cardiology Problems Congestive Heart Failure: No Respiratory Problems Chronic Obstructive Pulmonary Disease (COPD): No Asthma: No Genital/Urinary Problems Renal Disease: No Endocrine Problems Diabetes Mellitus Type 1: No Diabetes Mellitus Type 2: No Blood Problems Sickle Cell Disease: No
== END 2024-11-17 13:39 | disposition home or self-care (01) ==
LOC: HODSRG 13:07
PROVIDERS: PCP Student in an Organized Health Care Education/Training Program; Referring Provider Student in an Organized Health Care Education/Training Program; Supervising Provider Surgery; Visit Provider Surgery
DX: L02.213 Cutaneous abscess of chest wall (principal); L03.313 Cellulitis of chest wall; F17.210 Nicotine dependence, cigarettes, uncomplicated
CPT/HCPCS: 99213; G0463

== ENCOUNTER 2024-11-26 05:45 | Day surgery (SDC) | payer MEDICAID, SELFPAY ==
[2024-11-25 11:02] VITALS: BMI 35.9
[2024-11-25 12:14] LABS: Basophils # (Auto) 0.1 Thou/mm3 (0.0-0.2); Basophils % (Auto) 1 % (0-2.5); Eosinophils # (Auto) 0.2 Thou/mm3 (0.0-0.5); Eosinophils % (Auto) 3 % (0-10); Hematocrit 38.5 % (41.0-53.0); Hemoglobin 12.5 g/dL (13.5-16.0); Immature Granulocytes % (Auto) 0 % (0-0); Immature Granulocytes Auto 0.02 Thou/mm3 (0.00-0.00); Lymphocytes # (Auto) 1.4 Thou/mm3 (1.0-4.8); Lymphocytes % (Auto) 19 % (10-50); Mean Corpuscular HGB Conc 32.5 g/dl (31.0-37.0); Mean Corpuscular Hemoglobin 28.4 pg (25.0-35.0); Mean Corpuscular Volume 88 fL (80-100); Monocytes # (Auto) 0.7 Thou/mm3 (0.0-0.8); Monocytes % (Auto) 9 % (0-12); Neutrophils # (Auto) 5.1 Thou/mm3 (1.8-7.7); Neutrophils % (Auto) 68 % (37-80); Nucleated Red Blood Cell % 0 /100 WBC (0); Platelet Count 296 Thou/mm3 (140-440); RDW Standard Deviation 46.9 fL (35.1-43.9); White Blood Count 7.5 Thou/mm3 (3.8-10.6)
[2024-11-25 12:22] LABS: Partial Thromboplastin Time 28.1 Seconds (22.0-36.0); Prothrombin Time 11.2 Seconds (9.0-12.2)
[2024-11-25 12:40] LABS: Alanine Aminotransferase < 7 U/L (10-49); Albumin/Globulin Ratio 1.1 (1.2-2.2); Alkaline Phosphatase 103 U/L (46-116); Anion Gap 8 (7-16); Aspartate Amino Transferase 13 U/L (0-34); BUN/Creatinine Ratio 16 Ratio (12-20); Bilirubin,Total 0.4 mg/dL (0.3-1.2); Blood Urea Nitrogen 21 mg/dL (9-23); Calcium 9.2 mg/dL (8.3-10.6); Calcium (Corrected) 9.2 mg/dL (8.5-10.1); Carbon Dioxide 27.5 mMol/L (20.0-31.0); Chloride 108 mMol/L (98-107); Creatinine (Component) 1.3 mg/dL (0.6-1.3); Estimated Creatinine Clearance 66.4 mL/min (>60); Globulin 3.7 gm/dL (2.3-3.5); Glucose 101 mg/dL (74-106); Osmolality,Calculated 287 (275-295); Sodium 143 mMol/L (136-145); Total Protein 7.7 gm/dL (5.7-8.2); eGFR > 60 See Note
[2024-11-26] VITALS (8 sets, daily range): BP systolic 133–150; BP diastolic 78–91; PULSE 75–88; RESP 12–18; TEMP 36.6–37.6; O2SAT 93–99; BMI 33.8
[2024-11-26] MEDS: RINGERS LACTATED 1000 ML 1,000 ML 20 ML IV (06:45)
--- NOTE | 2024-11-26 08:25 | ESOP_ITS ---
Date of Procedure 11/26/24 Pre Op Diagnosis Right chest and axillary lesions Post Op Diagnosis Same Procedure Excisional biopsy of right chest and axillary lesions Findings Two right chest lesions with minimal pus, two axillary lesions with minimal drainage Procedure Description After discussion of risks and benefits, patient was brought to the operating room, SCDs were placed and general anesthesia with LMA was induced. He received preoperative antibiotics and was prepped and draped in usual sterile fashion. After timeout the 2 right chest lesions were debrided with a curette and tissue was sent for culture as well as pathology. There was minimal purulent output from the more inferior of these 2 superficial lesions and a culture was taken. The wounds were irrigated and hemostasis was achieved with electrocautery. Attention was then turned to the 2 right axillary lesions with draining sinuses. There were no signs of drainage at the time of the procedure. The more superior of the 2 was excised with an elliptical incision that was 1 x 3 cm. The incision was made with a #15 blade and the tissues were dissected with elec trocautery. Hemostasis was achieved with direct pressure and electrocautery. The more inferior axillary lesion was smaller and excised with a 1 x 1 cm ellipse. The excision was carried out with electrocautery and hemostasis was achieved with electrocautery. Wounds were infiltrated with half percent Marcaine for a total of 20 cc. Incisions were irrigated and the axillary lesions were closed in 2 layers with 3-0 Vicryl followed by 4-0 nylon. Axillary incisions were covered with gauze and tape and the chest lesions were covered with Adaptic, gauze and tape. Patient was extubated and brought to PACU in stable condition Pathology / specimen Other (Right chest wall and axillary lesions, right chest wall abscess) Estimated Blood Loss 10 Surgeon Batsheva Brenner MD Surgical Staff Operation Date: 11/26/24 07:30 Case Staff SENIOR SALES OPERATIONS ANALYST: Darien De La Paz RNlaborer airport maintenance: Maryam Andujar
--- NOTE | 2024-11-26 08:29 | ESDS_ITS ---
Planned Discharge Date 11/26/24 DS: Providers Provider Primary care physician: Raquel Lane MD Attending Provider on Admission: Batsheva Brenner MD Attending Provider on DC: Batsheva Brenner MD Discharging Provider: Batsheva Brenner MD Diagnosis Problem List Completed Was Problem List Reviewed/Reconciled?: Yes Exam Vital Signs Temp Pulse Resp BP Pulse Ox 99.6 F 88 13 135/83 H 98 11/26/24 06:30 11/26/24 06:30 11/26/24 06:30 11/26/24 06:30 11/26/24 06:30 Discharge Plan Plan Patient Disposition: HOME (Self Care) Prescriptions/Referrals Prescriptions/Med Rec: New tramadol 50 mg tablet 50 mg PO Q8H PRN (Reason: pain) Qty: 10 0RF No Action tamsulosin [Flomax] 0.4 mg capsule 0.4 mg PO QHS Qty: 14 0RF fluconazole 200 mg tablet 400 mg PO DAILY Patient Comments: TAKE 2 TABLET BY MOUTH EVERY DAY Referrals: Batsheva Brenner MD [Physician] - (You will receive a phone call to confirm a follow-up appointment with me next week) Raquel Lane MD [Primary Care Provider] - Patient/Caregiver Discharge Instructions Other Discharge Activity Instructions:: You may resume showering in 2 days, on 11/28/2024 Otherwise keep incisions clean and dry Your stitches will be removed at your follow-up appointment If you develop fever, pain, redness or drainage please seek care in ER Education Materials: Incision Care Print Language: Solomon Islander Stand Alone Forms: Haley Award Info., Patient Portal Info Letter Discharge Order Discharge Orders: Discharge (Routine); Ordered 11/26/24 Ordered By: Batsheva Brenner Results Results: Laboratory Laboratory results: results reviewed Procedures Procedure Date 11/26/24 Procedures Excisional biopsy of right chest and axillary lesions
--- NOTE | 2024-11-26 08:40 | SUR.PHASEI ---
0840: Pt. arrived with oral airway in place, vitals stable, breathing unlabored, no signs of distress, dressing to right upper chest CDI, no active bleed noted, report received from Darien MORELAND and Jorge REYNA.
[2024-11-26] MEDS: fentaNYL CIT INJ 50 mCg/ML AMP 2ML IV (09:27)
--- NOTE | 2024-11-26 09:45 | SUR.PHASEII ---
0945: Pt. AAOx4, vitals stable, breathing unlabored, no complaint of pain or nausea, dressing to right chest/armpit CDI, no active bleed noted, pt. tolerated sips of soda well, pt. ambulated to wheelchair with steady gait and no assist, no complications. Gave discharge instructions to the pt. and his ride, both verbalized understanding and had no further questions. Pt. left with all personal belongings.
== END 2024-11-26 09:45 | disposition home or self-care (01) ==
PROVIDERS: Anesthesiology; PCP Student in an Organized Health Care Education/Training Program; Referring Provider Surgery; Visit Provider Surgery
PROC: (CPT 11402; principal; 2024-11-26 07:30)
DX: L92.8 Other granulomatous disorders of the skin and subcutaneous tissue (principal); B38.9 Coccidioidomycosis, unspecified; F17.210 Nicotine dependence, cigarettes, uncomplicated
CPT/HCPCS: 11402; 11406; 36415; 80053; 85025; 85610; 85730; 87070; 87075; 87205; A4217; A4649; J0131; J0690; J2250; J2371; J2704; J3010; J3490; J7120

== ENCOUNTER 2024-12-03 12:56 | Outpatient (AMB) | payer MEDICAID, SELFPAY ==
--- NOTE | 2024-12-03 13:06 | GSCOFFNT_ITS ---
Vital Signs - [facility] 12/03/24 13:07 Height 1.78 m Height Method Stated Weight 100.244 kg Weight Measurement Method Standing Scale BMI 31.6 BP 136/81 H Blood Pressure Source Automatic Cuff Blood Pressure Location Right Upper Arm Position Sitting Respiration 18 Pulse 85 Pulse Source Monitor Temp 96.6 F L Temp Source Temporal Artery Scan Pulse Oximetry (%) 95 Oxygen Delivery Method Room Air Med/Allergies Allergies & Medications Allergies ciprofloxacin Allergy (Unknown, Verified 12/03/24 13:07) RASH,DIZZY Medication Reconciliation tamsulosin 0.4 mg capsule (Flomax) 0.4 mg PO QHS #14 caps 08/29/24 [Rx Confirmed 12/03/24] fluconazole 200 mg tablet 400 mg PO DAILY 11/25/24 [History Confirmed 12/03/24] tramadol 50 mg tablet 50 mg PO Q8H PRN pain #10 tabs 11/26/24 [Rx Confirmed 12/03/24] MA Intake Visit Data Collection New Patient or Established: Established Patient (seen at [facility] within 3 years) Seen by Clinical Staff ONLY (RN/MA): No Reason for Visit:: F/u mass excision Pain Present Currently: No Pain scale:: 0 Pain Scale Used: Honeycutt-Ndiaye/Numerical Strategy Planning Consultant Required: Yes PCP or OBGYN visit in last 3 months: Yes Hx Now: No Do You Feel Safe at Home: Yes Authorities Contacted: N/A Smoking Status Smoking Status: Light (< 1 pack/day) Cessation Counseling Provided: KEIRA was advised that quitting smoking is the single most important factor to protect the health of themselves and their family. Discussed the benefits of quitting smoking with patient. Encouraged patient to quit smoking and provided Cessation assistance materials and resources. Tobacco Use: Cigarette Years smoked: 5 Are you interested in quitting?: No Immunization / Flu Flu Vaccine in the Last 12 Months: No Flu Vaccine Exclusion Criteria: No Exclusion Criteria Past Medical History Past Medical History NEUROLOGIC: Negative Neurological Disorders or Seizures CARDIAC: Positive Edema (bilateral legs) and Hypertension (has not taken med for a while); Negative Cardiac Disorders or Congestive Heart Failure RESPIRATORY: Negative Chronic Obstructive Pulmonary Disease (COPD) or Asthma GASTROINTESTINAL: Negative Gastrointestinal Disorders or Hepatitis GENITOURINARY: Positive Genitourinary Disorders and Benign Prostatic Hyperplasia; Negative Renal Disease MUSCULOSKELETAL: Positive Arthritis ENDOCRINE: Negative Endocrine Disorders, Diabetes Mellitus Type 1 or Diabetes Mellitus Type 2 HEMATOLOGIC: Negative Blood Disorders or Sickle Cell Disease PSYCHO/SOCIAL: Positive Recreational Drug Use (Meth) OTHER HISTORY: Positive Hospitalization ([place] fever), Chicken Pox and Mumps; Negative Autoimmune Disease, Shingles, Blood Transfusions, Blood Transfusion Reaction, Anesthesia Reactions or Cancer Family History FAMILY HISTORY: Positive Family Surgery; Negative Family Psychiatric Problems, Family Respiratory Disorders, Family Cardiac Disorders, Family Gastrointestinal Problems, Family Cancer or Family Anesthesia Reaction Surgical History SURGICAL: Positive Tonsillectomy and Open Reduction Internal Fixation (Left ankle) Social History SMOKING STATUS: Smoking status: Light (< 1 pack/day) ALCOHOL: Alcohol Intake: Current ALCOHOL FREQUENCY: Alcohol Intake Frequency: 3 or More Drinks per Day HOUSING: Housing: House LIVES WITH: Lives With: Children Travel Risk Travel Hx Recent Travel: No HPI HPI Narrative 59M with coccidiomycosis diagnosed 07/2024 referred for biopsy of chest and axillary lesions which was performed 11/26, here for planned follow up. Pt reports having minimal drainage from the axillary lesions, denies any pain, overall feeling well ROS Review of Systems Systems Reviewed: All systems reviewed, normal except as documented Objective/Exam General General Appearance: alert, cooperative and well groomed Chest Chest inspection: Present other (right chest wall lesions with no erythema, no fluctuance or tenderness) Skin Skin exam: Present other (right axillary incisions with no surrounding erythema, sutures removed; minimal serosanguinous drainage from superior incison) Results Pathology reviewed consistent with cocci Assessment & Plan Diagnosis / Problem List (1) Coccidioidomycosis: Status: Acute Assessment & Plan: 59M with coccidiomycosis diagnosed 07/2024 s/p excisional biopsy of right chest wall and axillary lesions, pathology consistent with cutaneous cocci. I advised pt to follow up with his PCP and he was advised he would be referred to a specialist so I recommended he follow up on this referral as well Plan: Follow up as needed Office Procedures GNS Level of Care Nursing/Assessment Patient Status: Established Patient Nursing Assessment/Reassesment: Medication Reconciliation, Update PMH in EMR and Vital Signs Coordination of Care: Complex Care and Chronic Disease 1-5, Education Complex Pt/Fam, Consent,records obtained, informed consent, Lab and Imaging orders, Results/Orders obtained and Staff clarify orders Established Patient Charge Established Patient Point Assignment: 110 Established Patient Point Charge: EP Level 3 (80-115) Patient Portal Questionaires Social History Living Situation History Housing: House Housing Other:: Pt is staying with his sonColt Tobacco History Smoking Status: Light (< 1 pack/day) Alcohol History Alcohol Intake: Current Alcohol Intake Frequency: 3 or More Drinks per Day Substance Use History Substance Use: Meth, Marijuana Domestic Abuse History Do You Feel Safe at Home: Yes Review of Systems Report any current symptoms Only answer those that you have currently: Past Medical History Past Medical History Have you ever been diagnosed with any of the following: Neurological Problems Seizures: No Cardiology Problems Congestive Heart Failure: No Edema: Yes (bilateral legs) Hypertension: Yes (has not taken med for a while) Respiratory Problems Chronic Obstructive Pulmonary Disease (COPD): No Asthma: No Stomache/Intestinal Problems Hepatitis: No Genital/Urinary Problems Renal Disease: No Benign Prostatic Hyperplasia: Yes Musculoskeletal Problems Arthritis: Yes Endocrine Problems Diabetes Mellitus Type 1: No Diabetes Mellitus Type 2: No Blood Problems Sickle Cell Disease: No Psychologic Problems Recreational Drug Use: Yes (Meth) Other Problems Hospitalization: Yes ([place] fever) Autoimmune Disease: No Shingles: No Blood Transfusions: No Blood Transfusion Reaction: No Anesthesia Reactions: No Chicken Pox: Yes Mumps: Yes Cancer: No
[2024-12-03 13:07] VITALS: BP 136/81; PULSE 85; RESP 18; TEMP 35.9; O2SAT 95; BMI 31.6
== END 2024-12-03 13:20 | disposition home or self-care (01) ==
LOC: HODSRG 12:56
PROVIDERS: PCP Student in an Organized Health Care Education/Training Program; Referring Provider Student in an Organized Health Care Education/Training Program; Supervising Provider Surgery; Visit Provider Surgery
DX: B38.9 Coccidioidomycosis, unspecified (principal)
CPT/HCPCS: 99213; G0463